=== PATIENT | female | born 1955 | race Caucasian/White ===

== ENCOUNTER 2017-05-15 12:39 | Emergency (ER) | payer BC, OTHER ==
[~2017-05-15] VITALS: Ht 157.5 cm; Wt 59.0 kg
[~2017-05-15 12:39] MED LIST: ANASTROZOLE1 MG PO; ASACOL400 MG PO; ASPIR 8181 MG PO; ASPIRIN325 MG PO; BACTRIM DS TAB1 EACH PO; BUTALBITAL-ASA1 EACH PO; CLOPIDOGREL75 MG PO; COLESTIPOL HCL1 G1 PO; CYCLOBENZAPRINE10 MG PO; GEMFIBROZIL600 MG PO; HYDROCODON-ACE1 EA12 PO; HYDROCODON-ACE1 EA15 PO; LISINOPRIL10 MG PO; MOBIC7.5 M1 PO; MOBIC7.5 MG PO; NORCO 5-325 TA1 EACH PO; OMEPRAZOLE40 MG PO; ONDANSETRON HCL4 MG PO; PANTOPRAZOLE SO40 MG PO; PROMETHAZINE HC25 M1 PO; SERTRALINE HCL25 MG PO; SIMVASTATIN PO; SUCRALFATE1 GM PO; TYLENOL # 31 EA PO; VICOPROFEN 2001 EACH PO; Z.0.PRINIVIL10 MG PO; Z.0.ZOLOFT25 MG PO; ZOCOR40 MG; levocetirizine PO
[2017-05-15 15:04] LABS: BASOPHILS % 0.4 % (0.0-1.0); EOSINOPHILS # (AUTO) 0.1 (0.0-0.4); EOSINOPHILS % 2.1 % (0.0-6.0); HEMATOCRIT 43.8 % (34.2-44.1); HEMOGLOBIN 15.5 g/dL (12.0-16.0); LYMPHOCYTES # (AUTO) 1.8 (1.0-3.2); MEAN CORPUSCULAR HEMOGLOBIN 31.7 pg (28-32); MEAN CORPUSCULAR HGB CONC 35.4 g/dL (31-35); MEAN CORPUSCULAR VOLUME 89.6 fL (81-99); MONOCYTES # (AUTO) 0.4 (0.2-0.8); MONOCYTES % 6.4 % (4.4-11.3); NEUTROPHILS # (AUTO) 3.3 (2.1-6.9); NEUTROPHILS % 58.7 % (38.7-80.0); PLATELET COUNT 207 x10e3/uL (140-360); RED BLOOD COUNT 4.89 x10e6/uL (3.6-5.1); RED CELL DISTRIBUTION WIDTH 12.7 % (11.7-14.4)
[2017-05-15 15:20] LABS: ALANINE AMINOTRANSFERASE 22 IU/L (0-55); ALBUMIN 4.2 g/dL (3.5-5.0); ALKALINE PHOSPHATASE 107 IU/L (40-150); BLOOD UREA NITROGEN 15 mg/dL (7-26); BUN/CREATININE RATIO 19 (6-25); CALCIUM 10.3 mg/dL (8.4-10.2); CARBON DIOXIDE 24 mmol/L (22-29); CHLORIDE 102 mmol/L (98-107); CREATINE KINASE 105 IU/L (29-168); CREATININE, SERUM 0.79 mg/dL (0.57-1.11); EST GLOMERULAR FILTRATION RATE > 60 ML/MIN (60-); GLUCOSE 93 mg/dL (74-118); SODIUM 136 mmol/L (136-145)
--- NOTE | 2017-05-15 15:28 | Diagnostic Imaging Report ---
PROCEDURE: Frontal and lateral views of the chest. COMPARISON: Patients [facility], CT, CT CHEST W, 01/24/2016, 22:55. Patients [facility], DX, CHEST SINGLE (NOT PORTABLE), 01/24/2016, 13:06. INDICATIONS: COUGH, CHEST PAIN FINDINGS: Lines/tubes: None. Lungs: The lungs are well inflated and clear. There is no evidence of pneumonia or pulmonary edema. Pleura: There is no pleural effusion or pneumothorax. Heart and mediastinum: The heart and the mediastinum are normal. Bones: No acute bony abnormality. Partially visualized fusion hardware in the lower cervical spine. IMPRESSION: 1. No acute cardiopulmonary abnormalities. Moshe Slater M.D. Dictated by: Moshe Slater M.D. on 05/15/2017 at 15:28 Electronically approved by: Moshe Slater M.D. on 05/15/2017 at 15:28
[2017-05-15 18:42] LABS: BILIRUBIN,URINE NEGATIVE (NEGATIVE); CLARITY,URINE CLEAR (CLEAR); COLOR,URINE YELLOW (YELLOW); KETONES,URINE NEGATIVE (NEGATIVE); LEUKOCYTE ESTERASE ,URINE NEGATIVE (NEGATIVE); NITRITE,URINE NEGATIVE (NEGATIVE); PROTEIN,URINE DIPSTICK NEGATIVE (NEGATIVE); URINE UROBILINOGEN 0.2 mg/dL (0.2 - 1)
[2017-05-15 18:54] LABS: EPITHELIAL CELLS,URINE RARE /LPF; RBC,URINE 0-5 /HPF (0-5); WBC,URINE (MAN) 0-5 /HPF (0-5)
[2017-05-15 18:55] LABS: MUCUS,URINE FEW (RARE)
[2017-05-15 20:19] VITALS: BP 126/82
== END 2017-05-15 20:22 | disposition home or self-care (01) ==
LOC: ER 12:48
DX: R05 Cough (principal); R06.00 Dyspnea, unspecified; K92.89 Other specified diseases of the digestive system
CPT/HCPCS: 36415; 71046; 80053; 81001; 82550; 82553; 83880; 84484; 85025; 93005; 99284

== ENCOUNTER 2017-06-24 11:18 | Inpatient (IN) | payer BC ==
[~2017-06-24] VITALS: Ht 157.5 cm; Wt 70.8 kg
--- OUTSIDE RECORDS SUMMARY | 2017-06-24 11:21 | XMS REPORT | Continuity of Care Document ---
Author Author [facility] Organization [facility] Address [address] [place] [address] Phone Unavailable Care Team Providers Care Transportation Engineering Technician Name Role Phone ALVARO IQBAL MD PCP Insurance Providers Guarantor Deisi Teran Address [address] [place] [address] Email [email or web address] [facility] Policy Number [id number] Subscriber's Name Deisi Teran Relationship 18 Self / Same As Patient Group Number [id number] Group Name [facility] [employer] 1 Effective Date 16 Advance Directives Directive Response Recorded Date/Time Does the patient have an advance directive? No 08/09/14 3:54pm If yes, is advance directive on file with [facility]? No 08/09/14 3:54pm If not on file with [facility] will patient provide a copy? No 05/15/17 2:29pm Do you have a Directive to Physician? No 05/15/17 2:29pm Do you have a Medical Power of Paperhanger Contractor? No 05/15/17 2:29pm Do you have an out of hospital Do Not Resuscitate Order? No 05/15/17 2:29pm Do you have any special needs we should be aware of? No 05/15/17 2:29pm Do you have a support person here with you today? Yes 05/15/17 2:29pm Did patient receive Notice of Privacy Practices? Yes 05/15/17 2:29pm Did patient receive patient rights and responsibilities? Yes 05/15/17 2:29pm Problems Medical Problem Onset Date Status Chest pain 08/09/2014 Acute Deep vein thrombophlebitis of lower leg Unknown Acute Lung mass 08/09/2014 Acute Sciatica Unknown Acute Medications Current Home Medications Medication Dose Units Route Directions Days Qty Instructions Start Date Acetaminophen/Codeine Phosphate (Tylenol # 3*) 1 Ea Tab 1 Tab Oral Every 4 Hours as needed for Pain Anastrozole 1 Mg Tablet 1 Mg Oral Bedtime Colestipol Hcl 1 Gm Tablet 1 Gm Oral Daily Gemfibrozil 600 Mg Tablet 600 Mg Oral Twice A Day Levocetirizine 5 Mg Oral Daily Lisinopril 10 Mg Tablet 10 Mg Oral Daily Sertraline Hcl 25 Mg Tablet 25 Mg Oral Qhs Sucralfate 1 Gm Tablet 1 G Oral Three Times Daily And Bedtime Past Home Medications Medication Directions Ordered Status Aspirin (Aspir 81) 81 Mg Tablet., 81 Mg Oral Daily Discontinued Aspirin 325 Mg Tablet, 325 Mg Oral Twice A Day Discontinued Butalbital/Aspirin/Caffeine (Smqfeycrjz-Rqo-Pybzrorv Cap) 1 Each Capsule, 1 Cap Oral Every 12 Hours as needed Discontinued Hydrocodone Bit/Acetaminophen (Hydrocodon-Acetaminoph 7.5-300) 1 Each Tablet, 1 Tab Oral Every 12 Hours as needed for Pain Discontinued Hydrocodone Bit/Acetaminophen (Hydrocodon-Acetaminoph 7.5-325) 1 Each Tablet, 1 Tab Oral Bid Prn Discontinued Hydrocodone/Ibuprofen (Vicoprofen 200-7.5 Mg Tab) 1 Each Tablet, 200 Mg Oral As Needed Discontinued Meloxicam (Mobic*) 7.5 Mg Tablet, 7.5 Mg Oral As Needed Discontinued Meloxicam (Mobic) 7.5 Mg Tablet, 7.5 Mg Oral As Needed Discontinued Omeprazole 40 Mg Capsule., 40 Mg Oral Daily Discontinued Ondansetron Hcl 4 Mg Tablet, 4 Mg Oral Bid Prn Discontinued Pantoprazole Sodium (Protonix) 40 Mg Tablet.dr 40 Mg Oral Daily Discontinued Simvastatin (Zocor) 40 Mg Tablet, Discontinued Simvastatin , 40 Mg Oral Daily Discontinued Sulfamethoxazole/Trimethoprim (Bactrim Ds Tablet) 1 Each Tablet, 1 Tab Oral Daily Discontinued Social History Social History Problem Response Recorded Date/Time Onset Date Status Hx Psychiatric Problems No 08/09/2014 3:54pm Not Applicable Not Applicable Hx Eating Disorder No 08/09/2014 3:54pm Not Applicable Not Applicable Hx Substance Use Disorder No 08/09/2014 3:54pm Not Applicable Not Applicable Hx Depression No 08/09/2014 3:54pm Not Applicable Not Applicable Hx Alcohol Use No 08/09/2014 3:54pm Not Applicable Not Applicable Hx Substance Use Treatment No 08/09/2014 3:54pm Not Applicable Not Applicable Hx Physical Abuse No 08/09/2014 3:54pm Not Applicable Not Applicable Hospital Discharge Instructions No hospital discharge instruction information available. Plan of Care Discharge Date 05/15/17 8:22pm Disposition HOME, SELF-CARE Condition at Discharge Stable Instructions/Education Provided Dyspnea Forms Provided Work/School Excuse Prescriptions See Medication Section Referrals ALVARO IQBAL MD Order Date: Call for an appointment Address: [address] [place] [id number] Additional Instructions/Education Rest, drink plenty of fluids. Take over the counter medication for allergy symptoms. Take the prescribed medication for sever pain. Call the Medical provider referal for out patient follow up. Return to the ER for any chest pain, shortness of breath, trouble handling oral secreactions or any new concerns. Functional Status No functional status information available. Allergies, Adverse Reactions, Alerts No known allergies. Immunizations No immunization information available. Vital Signs Acute Vital Signs Vital Response Date/Time Temperature (Fahrenheit) 97.8 degrees F (97.6 - 99.5) 05/15/2017 8:19pm Pulse Pulse Rate (adult) 70 bpm (60 - 90) 05/15/2017 8:19pm Respiratory Rate 18 bpm (12 - 24) 05/15/2017 8:19pm Blood Pressure 126/82 mm Hg 05/15/2017 8:19pm Height 5 ft 2 in 05/15/2017 12:47pm Weight 130 lb 05/15/2017 12:47pm Body Mass Index 23.8 kg/m^2 05/15/2017 12:47pm Results Laboratory Results Test Name Result Units Flags Reference Collection Date/Time Result Date/ Time Comments White Blood Count 5.65 x10e3/uL 4.8-10.8 05/15/2017 2:50pm 05/15/2017 3 :07pm Red Blood Count 4.89 x10e6/uL 3.6-5.1 05/15/2017 2:50pm 05/15/2017 3: 07pm Hemoglobin 15.5 g/dL 12.0-16.0 05/15/2017 2:50pm 05/15/2017 3:07pm Hematocrit 43.8 % 34.2-44.1 05/15/2017 2:50pm 05/15/2017 3:07pm Mean Corpuscular Volume 89.6 fL 81-99 05/15/2017 2:50pm 05/15/2017 3: 07pm Mean Corpuscular Hemoglobin 31.7 pg 28-32 05/15/2017 2:50pm 05/15/2017 3:07pm Mean Corpuscular Hemoglobin Concent 35.4 g/dL H 31-35 05/15/2017 2:50pm 05/15/2017 3:07pm Red Cell Distribution Width 12.7 % 11.7-14.4 05/15/2017 2:50pm 2017 3:07pm Platelet Count 207 x10e3/uL 140-360 05/15/2017 2:50pm 05/15/2017 3: 07pm Neutrophils (%) (Auto) 58.7 % 38.7-80.0 05/15/2017 2:50pm 05/15/2017 3: 07pm Lymphocytes (%) (Auto) 32.0 % 18.0-39.1 05/15/2017 2:50pm 05/15/2017 3: 07pm Monocytes (%) (Auto) 6.4 % 4.4-11.3 05/15/2017 2:50pm 05/15/2017 3: 07pm Eosinophils (%) (Auto) 2.1 % 0.0-6.0 05/15/2017 2:50pm 05/15/2017 3: 07pm Basophils (%) (Auto) 0.4 % 0.0-1.0 05/15/2017 2:50pm 05/15/2017 3:07pm IM GRANULOCYTES % 0.4 % 0.0-1.0 05/15/2017 2:50pm 05/15/2017 3:07pm Neutrophils # (Auto) 3.3 2.1-6.9 05/15/2017 2:50pm 05/15/2017 3:07pm Lymphocytes # (Auto) 1.8 1.0-3.2 05/15/2017 2:50pm 05/15/2017 3:07pm Monocytes # (Auto) 0.4 0.2-0.8 05/15/2017 2:50pm 05/15/2017 3:07pm Eosinophils # (Auto) 0.1 0.0-0.4 05/15/2017 2:50pm 05/15/2017 3:07pm Basophils # (Auto) 0.0 0.0-0.1 05/15/2017 2:50pm 05/15/2017 3:07pm Absolute Immature Granulocyte (auto 0.02 x10e3/uL 0-0.1 05/15/2017 2: 50pm 05/15/2017 3:07pm Urine Color YELLOW YELLOW 05/15/2017 5:55pm 05/15/2017 6:43pm Urine Clarity CLEAR CLEAR 05/15/2017 5:55pm 05/15/2017 6:43pm Urine Specific [place] 1.015 1.010-1.025 05/15/2017 5:55pm 2017 6:43pm Urine pH 5 5 - 7 05/15/2017 5:55pm 05/15/2017 6:43pm Urine Leukocyte Esterase NEGATIVE NEGATIVE 05/15/2017 5:55pm 2017 6:43pm Urine Nitrite NEGATIVE NEGATIVE 05/15/2017 5:55pm 05/15/2017 6:43pm Urine Protein NEGATIVE NEGATIVE 05/15/2017 5:55pm 05/15/2017 6:43pm Urine Glucose (UA) NEGATIVE NEGATIVE 05/15/2017 5:55pm 05/15/2017 6: 43pm Urine Ketones NEGATIVE NEGATIVE 05/15/2017 5:55pm 05/15/2017 6:43pm Urine Urobilinogen 0.2 mg/dL 0.2 - 1 05/15/2017 5:55pm 05/15/2017 6: 43pm Urine Bilirubin NEGATIVE NEGATIVE 05/15/2017 5:55pm 05/15/2017 6: 43pm Urine Blood NEGATIVE NEGATIVE 05/15/2017 5:55pm 05/15/2017 6:43pm Urine WBC 0-5 /HPF 0-5 05/15/2017 5:55pm 05/15/2017 6:55pm Urine RBC 0-5 /HPF 0-5 05/15/2017 5:55pm 05/15/2017 6:55pm Urine Bacteria NONE /HPF NONE 05/15/2017 5:55pm 05/15/2017 6:55pm Urine Epithelial Cells RARE /LPF NONE 05/15/2017 5:55pm 05/15/2017 6: 55pm Urine Mucus FEW H RARE 05/15/2017 5:55pm 05/15/2017 6:55pm Sodium Level 136 mmol/L 136-145 05/15/2017 2:50pm 05/15/2017 3:22pm Potassium Level 4.0 mmol/L 3.5-5.1 05/15/2017 2:50pm 05/15/2017 3:22pm Chloride Level 102 mmol/L 98-107 05/15/2017 2:50pm 05/15/2017 3:22pm Carbon Dioxide Level 24 mmol/L 22-29 05/15/2017 2:50pm 05/15/2017 3: 22pm Anion Gap 14.0 mmol/L 8-16 05/15/2017 2:50pm 05/15/2017 3:22pm Blood Urea Nitrogen 15 mg/dL 7-26 05/15/2017 2:50pm 05/15/2017 3:22pm Creatinine 0.79 mg/dL 0.57-1.11 05/15/2017 2:50pm 05/15/2017 3:22pm BUN/Creatinine Ratio 19 6-25 05/15/2017 2:50pm 05/15/2017 3:22pm Estimat Glomerular Filtration Rate > 60 ML/MIN 60- 05/15/2017 2:50pm 3:22pm Ranges were taken from the National Kidney Disease Education Program and the National Kidney Foundation literature. Reference ranges: 60 or greater: Normal 16-59 (for 3 consecutive months): Chronic kidney disease 15 or less: Kidney failure Glucose Level 93 mg/dL 74-118 05/15/2017 2:50pm 05/15/2017 3:22pm Calcium Level 10.3 mg/dL H 8.4-10.2 05/15/2017 2:50pm 05/15/2017 3:22pm Total Bilirubin 0.5 mg/dL 0.2-1.2 05/15/2017 2:50pm 05/15/2017 3:22pm Aspartate Amino Transf (AST/SGOT) 23 IU/L 5-34 05/15/2017 2:50pm 2017 3:22pm Alanine Aminotransferase (ALT/SGPT) 22 IU/L 0-55 05/15/2017 2:50pm 3:22pm Total Protein 8.6 g/dL H 6.5-8.1 05/15/2017 2:50pm 05/15/2017 3:22pm Albumin 4.2 g/dL 3.5-5.0 05/15/2017 2:50pm 05/15/2017 3:22pm Globulin 4.4 g/dL H 2.3-3.5 05/15/2017 2:50pm 05/15/2017 3:22pm Albumin/Globulin Ratio 1.0 0.8-2.0 05/15/2017 2:50pm 05/15/2017 3: 22pm Alkaline Phosphatase 107 IU/L 40-150 05/15/2017 2:50pm 05/15/2017 3: 22pm B-Type Natriuretic Peptide 24.2 pg/mL 0-100 05/15/2017 2:50pm 2017 3:25pm Creatine Kinase 105 IU/L 29-168 05/15/2017 2:50pm 05/15/2017 3:22pm Creatine Kinase MB 3.70 ng/mL 0-5.0 05/15/2017 2:50pm 05/15/2017 3: 29pm Troponin I < 0.001 ng/mL 0-0.300 05/15/2017 2:50pm 05/15/2017 3:29pm Procedures Procedure Status Date Provider(s) X-ray of chest, two views Active 05/15/17 AKBAR BRANDT TOOL DISTRIBUTOR Encounters Encounter Location Arrival/Admit Date Discharge/Depart Date Attending Provider Departed Emergency Room [facility] 05/15/17 12:48pm 05/15 8:22pm RAUL BIRCH MD
--- OUTSIDE RECORDS SUMMARY | 2017-06-24 11:21 | XMS REPORT ---
[facility] Address Unknown Phone Unavailable Care Team Providers Care Dietetic Tech Name Role Phone RAUL BIRCH Unavailable Unavailable Problems This patient has no known problems. Allergies, Adverse Reactions, Alerts This patient has no known allergies or adverse reactions. Medications This patient has no known medications. Results Test Description Test Time Test Comments Text Results Atomic Results Result Comments CHEST 2 VIEWS [place] [address] Patient Name: DEISI WILKINSON MR #: [id number] : 1955 Age/Sex: 61/F Req # : [id number] Adm Physician: Ordered by: AKBAR BRANDT BUSINESS TECHNOLOGY ARCHITECT Report #: [id number] Location: ER Room/Bed: Procedure: [id number] DX/CHEST 2 VIEWS Exam Date: Exam Time: REPORT STATUS: Signed PROCEDURE: Frontal and lateral views of the chest. COMPARISON: [facility], CT, CT CHEST W, 01/24/2016, 22:55. [facility], DX, CHEST SINGLE (NOT PORTABLE), 01/24/2016, 13: 06. INDICATIONS: COUGH, CHEST PAIN FINDINGS: Lines/tubes: None. Lungs: The lungs are well inflated and clear. There is no evidence of pneumonia or pulmonary edema. Pleura: There is no pleural effusion or pneumothorax. Heart and mediastinum: The heart and the mediastinum are normal. Bones: No acute bony abnormality. Partially visualized fusion hardware in the lower cervical spine. IMPRESSION: 1. No acute cardiopulmonary abnormalities. Nitesh Slater M.D. Dictated by: Nitesh Slater M.D. on 05/15/2017 at 15:28 Electronically approved by: Nitesh Slater M.D. on 05/15/2017 at 15:28 Dictated By: NITESH SLATER MD [id number] Transcribed By: JAJA on 05/15/17 1528 COPY TO: AKBAR BRANDT NP
[2017-06-24] MEDS ORDERED: SODIUM CHLORIDE 0.9% 1000ML 1,000 ML IV STA (11:27)
[2017-06-24] MEDS ORDERED: METRONIDAZOLE 500MG/NS 100ML 100 ML IV STA (11:27)
[2017-06-24] MEDS ORDERED: CIPROFLOXACIN 400 MG/D5W 200ML 200 ML IV ONE (11:30)
[2017-06-24] MEDS ORDERED: ONDANSETRON HCL 4 MG ORAL DISINTEGRATING TAB PO ONE ×2 (11:30→14:00)
[2017-06-24] MEDS ORDERED: DIATRIZOATE MEGL/DIATRIZOA SOD 30 ML BTL PO ONE (11:44)
[2017-06-24] MEDS ORDERED: MORPHINE SULFATE 2 MG/ML SYR IV ONE ×2 (12:00→14:00)
[2017-06-24 12:06] LABS: CLARITY,URINE CLEAR (CLEAR); COLOR,URINE YELLOW (YELLOW); LEUKOCYTE ESTERASE ,URINE 1+ (NEGATIVE)
[2017-06-24 12:07] LABS: BILIRUBIN,URINE NEGATIVE (NEGATIVE); KETONES,URINE NEGATIVE (NEGATIVE); NITRITE,URINE NEGATIVE (NEGATIVE); PROTEIN,URINE DIPSTICK NEGATIVE (NEGATIVE); URINE UROBILINOGEN 0.2 mg/dL (0.2 - 1)
--- NOTE | 2017-06-24 12:14 | Diagnostic Imaging Report ---
EXAMINATION: Chest, CHEST SINGLE (PORTABLE) INDICATION: Chest pain COMPARISON: Portable chest 08/06/2015 FINDINGS: LINES: None. Heart: Normal cardiac silhouette. Vascular: The pulmonary vasculature is within normal limits. Atherosclerotic calcifications of the aortic arch. Mediastinum: No mediastinal, hilar, or axillary mass or lymphadenopathy. Lungs: No parenchymal mass. No focal consolidation. Pleura: No pleural effusion. No pneumothorax. Bones: No acute osseous abnormality. Degenerative changes of the thoracic spine. Soft tissues: Normal. Impression: No acute radiographic abnormality. Signed by: Dr. Francisco Soto M.D. on 06/24/2017 12:10 PM
[2017-06-24 12:18] LABS: RBC,URINE 0-5 /HPF (0-5)
[2017-06-24 12:19] LABS: BACTERIA,URINE FEW /HPF; EPITHELIAL CELLS,URINE MODERATE /LPF
[2017-06-24 12:40] LABS: BASOPHILS % 0.5 % (0.0-1.0); EOSINOPHILS # (AUTO) 0.1 (0.0-0.4); EOSINOPHILS % 2.1 % (0.0-6.0); HEMATOCRIT 43.5 % (34.2-44.1); HEMOGLOBIN 15.5 g/dL (12.0-16.0); LYMPHOCYTES # (AUTO) 1.6 (1.0-3.2); LYMPHOCYTES % 36.7 % (18.0-39.1); MEAN CORPUSCULAR HEMOGLOBIN 31.9 pg (28-32); MEAN CORPUSCULAR HGB CONC 35.6 g/dL (31-35); MEAN CORPUSCULAR VOLUME 89.5 fL (81-99); MONOCYTES # (AUTO) 0.3 (0.2-0.8); MONOCYTES % 5.8 % (4.4-11.3); NEUTROPHILS # (AUTO) 2.4 (2.1-6.9); NEUTROPHILS % 54.7 % (38.7-80.0); PLATELET COUNT 207 x10e3/uL (140-360); RED BLOOD COUNT 4.86 x10e6/uL (3.6-5.1)
[2017-06-24 12:50] LABS: INR 1.05; PROTHROMBIN TIME 12.9 seconds (11.9-14.5)
[2017-06-24 12:51] LABS: PARTIAL THROMBOPLASTIN TIME 27.2 seconds (23.8-35.5)
[2017-06-24 12:59] LABS: ALANINE AMINOTRANSFERASE 23 IU/L (0-55); ALBUMIN 3.9 g/dL (3.5-5.0); ALBUMIN/GLOBULIN RATIO 0.9 (0.8-2.0); ALKALINE PHOSPHATASE 93 IU/L (40-150); ANION GAP 15.8 mmol/L (8-16); BLOOD UREA NITROGEN 11 mg/dL (7-26); BUN/CREATININE RATIO 13 (6-25); CALCIUM 10.1 mg/dL (8.4-10.2); CARBON DIOXIDE 21 mmol/L (22-29); CHLORIDE 108 mmol/L (98-107); CREATINE KINASE 130 IU/L (29-168); CREATININE, SERUM 0.83 mg/dL (0.57-1.11); EST GLOMERULAR FILTRATION RATE > 60 ML/MIN (60-); GLUCOSE 85 mg/dL (74-118); LIPASE 44 U/L (8-78); POTASSIUM 3.8 mmol/L (3.5-5.1); SODIUM 141 mmol/L (136-145)
--- NOTE | 2017-06-24 14:18 | Diagnostic Imaging Report ---
EXAM: CT Abdomen and Pelvis WITH contrast INDICATION: Abdominal pain COMPARISON: None. TECHNIQUE: Abdomen and pelvis were scanned utilizing a multidetector helical scanner from the lung base to the pubic symphysis after administration of contrast. Coronal and sagittal reformations were obtained. Protocol: General survey IV CONTRAST: 100 mL of Isovue 370 ORAL CONTRAST: Gastroview COMPLICATIONS: None RADIATION DOSE: Total Exam DLP: 302 mGy*cm. CTDIvol has been reviewed. It is below the limits set by the Radiation Protocol Committee (RPC). FINDINGS: LINES: None. Lower thorax: No parenchymal abnormality. No pneumothorax. No pleural effusion. Liver: No focal mass. No hepatomegaly. Normal parenchyma. The hepatic and portal veins are patent. Gallbladder: Cholecystectomy. Biliary tree: No intrahepatic duct dilation. No extrahepatic duct dilation. Spleen: No splenomegaly. No focal mass. Pancreas: Normal parenchymal enhancement. No focal mass. Normal pancreatic duct. No peripancreatic inflammatory changes. Kidneys: No obstructing calculi. No hydronephrosis. No solid enhancing mass. No cysts. No perinephric soft tissue inflammatory changes. Adrenal glands: No adrenal nodules.. Bladder: Normal urinary bladder. Pelvic organs: Normal uterus and ovaries. GI: No bowel wall thickening. No air-fluid levels. The stomach and small bowel are normal. Circumferential bowel wall thickening is present in the descending colon, sigmoid colon, and rectum. Normal appendix. Scattered diverticuli are present in the descending and sigmoid colon, without adjacent soft tissue inflammatory changes. A moderate amount of retained feces limits intraluminal evaluation of the colon. Peritoneum/retroperitoneum: No pneumoperitoneum. No ascites. No drainable fluid collection. Lymph nodes: No lymphadenopathy. . Vessels: The abdominal aorta and iliac vessels are patent. The celiac, superior mesenteric, and inferior mesenteric arteries are patent. Single bilateral renal arteries are patent. . Bones: No focal abnormality. Degenerative changes of the lumbar spine. Soft tissues: No focal abnormality. IMPRESSION: Circumferential bowel wall thickening of the left hemicolon may represent a colitis of infectious or inflammatory etiology. Diverticulosis without evidence of diverticulitis. Signed by: Dr. Francisco Soto M.D. on 06/24/2017 2:14 PM
[2017-06-24] MEDS: SODIUM CHLORIDE 0.9% 1000ML 1,000 ML IV SCH (15:00)
[2017-06-24] MEDS ORDERED: KETOROLAC TROMETHAMINE 30 MG/ML VIAL IV ONE (15:15)
[2017-06-24] MEDS ORDERED: ACETAMINOPHEN/CODEINE 300MG - 30MG TAB PO PRN (16:15)
--- NOTE | 2017-06-24 17:10 | History and Physical ---
CLINICAL HISTORY: This is a 59-year-old white woman seen in the emergency room at [facility]. Known to our service from previous evaluation by Dr. Francois Parker because off low abdominal pains, with initial workup indicating diverticulitis. This patient had similar condition in the past. Previously evaluated by Dr. Ashu Lopez. She has a history of hypertension. Unclear history of atrial septal defect. Hyperlipidemia. Indigestion. Chronic pain medication usage. MEDICATIONS: She takes: 1. Vicodin. 2. Tylenol No. 3. 3. Colestipol. 4. Carafate. 5. Lisinopril 10 mg per day. 6. Sertraline 25 mg. 7. Gemfibrozil 600 mg b.i.d. 8. Aspirin 81 mg daily. PAST SURGERIES: Included cholecystectomy, unclear heart repair in [place] at age 10, cervical spine disease, intracranial aneurysm with coil embolization at [facility] in 2011, left heart cath showing no significant coronary artery disease on 11/17/09. FAMILY HISTORY: Father . Mother is alive with CVA. PERSONAL AND SOCIAL HISTORY: Denies smoking, drinking. ALLERGIES: TO CHEMICAL STRESS TEST. REVIEW OF SYSTEMS: Noncontributory. PHYSICAL EXAMINATION GENERAL: She is alert and coherent, appears to be comfortable. CARDIAC: Jugular veins are not distended. S1 and S2 are regular. There is a 1/6 systolic murmur. LUNGS: Clear. ABDOMEN: Soft. Bowel sounds are present. EXTREMITIES: No cyanosis, clubbing or edema. LABORATORY STUDIES: The white count is 4300, hemoglobin 15.5, platelet count of 207,000. Electrolytes are negative. Bicarb is 21. Stool guaiac was negative. Urinalysis showed 6-10 WBCs. IMPRESSION 1. Diverticulitis. 2. Possible urinary tract infection. 3. 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 4. Chronic pain medication. 5. Hypertension. 6. Hyperlipidemia. 7. Anxiety and depression. 8. Right bundle-branch block. RECOMMENDATIONS: GI consultation with Dr. Ashu Lopez. Antibiotics. Job#: [id number] cc:MD ASHU RUFF MD
[2017-06-24] MEDS: SUCRALFATE 1 GM TAB PO SCH ×2 (17:55→21:30)
[2017-06-24] MEDS: GEMFIBROZIL 600 MG TAB PO SCH (17:56)
[2017-06-24] MEDS: PIPER-TAZ 3.375 GM 100 ML IV SCH (17:56)
[2017-06-24] MEDS ORDERED: PIPER-TAZ 3.375 GM 3.375 GM/100 ML BAG IV SCH (18:00)
[2017-06-24] MEDS ORDERED: SODIUM CHLORIDE 0.9% 50ML 50 ML ONE (18:19)
[2017-06-24] MEDS ORDERED: IOPAMIDOL 370 MG/ML 200 ML INFUS..BTL INJ ONE (18:20)
[2017-06-24] MEDS: METRONIDAZOLE 500MG/NS 100ML 100 ML IV SCH (18:40)
[2017-06-24 21:41] VITALS: BP 123/57
[2017-06-24] MEDS: ONDANSETRON HCL 4 MG ORAL DISINTEGRATING TAB PO PRN (22:28)
[2017-06-24] MEDS: ANASTROZOLE 1 MG TAB PO SCH (22:28)
[2017-06-24] MEDS: MORPHINE SULFATE 2 MG/ML SYR IV PRN (22:28)
[2017-06-25] VITALS (11 sets, daily range): BP systolic 101–142; BP diastolic 53–63
[2017-06-25] MEDS: METRONIDAZOLE 500MG/NS 100ML 100 ML IV SCH ×4 (00:03→17:56)
[2017-06-25] MEDS: PIPER-TAZ 3.375 GM 100 ML IV SCH ×4 (00:04→17:56)
[2017-06-25] MEDS ORDERED: PEG (High)/E-LYTE SOLN 4,000 ML BTL PO ONE (00:30)
[2017-06-25] MEDS: SODIUM CHLORIDE 0.9% 1000ML 1,000 ML IV SCH ×2 (00:30→11:49)
[2017-06-25 07:25] LABS: BASOPHILS % 0.2 % (0.0-1.0); EOSINOPHILS # (AUTO) 0.1 (0.0-0.4); HEMATOCRIT 39.1 % (34.2-44.1); HEMOGLOBIN 13.2 g/dL (12.0-16.0); LYMPHOCYTES # (AUTO) 1.7 (1.0-3.2); LYMPHOCYTES % 32.7 % (18.0-39.1); MEAN CORPUSCULAR HEMOGLOBIN 31.7 pg (28-32); MEAN CORPUSCULAR HGB CONC 33.8 g/dL (31-35); MEAN CORPUSCULAR VOLUME 93.8 fL (81-99); MONOCYTES # (AUTO) 0.4 (0.2-0.8); MONOCYTES % 7.5 % (4.4-11.3); NEUTROPHILS % 58.4 % (38.7-80.0); PLATELET COUNT 167 x10e3/uL (140-360); RED BLOOD COUNT 4.17 x10e6/uL (3.6-5.1); RED CELL DISTRIBUTION WIDTH 13.2 % (11.7-14.4)
[2017-06-25] MEDS: SUCRALFATE 1 GM TAB PO SCH ×4 (07:30→20:49)
[2017-06-25] MEDS ORDERED: CITRATE OF MAGNESIA 300ML BOTTLE PO ONE (07:30)
[2017-06-25 08:00] LABS: ALANINE AMINOTRANSFERASE 18 IU/L (0-55); ALBUMIN 3.3 g/dL (3.5-5.0); ALBUMIN/GLOBULIN RATIO 0.9 (0.8-2.0); ALKALINE PHOSPHATASE 81 IU/L (40-150); BLOOD UREA NITROGEN 10 mg/dL (7-26); BUN/CREATININE RATIO 12 (6-25); CALCIUM 8.8 mg/dL (8.4-10.2); CARBON DIOXIDE 18 mmol/L (22-29); CHLORIDE 114 mmol/L (98-107); CREATININE, SERUM 0.81 mg/dL (0.57-1.11); EST GLOMERULAR FILTRATION RATE > 60 ML/MIN (60-); GLUCOSE 95 mg/dL (74-118); SODIUM 140 mmol/L (136-145)
[2017-06-25] MEDS: LISINOPRIL 10 MG TAB PO SCH (08:24)
[2017-06-25] MEDS: GEMFIBROZIL 600 MG TAB PO SCH ×2 (09:00→16:52)
[2017-06-25] MEDS: COLESTIPOL HCL 1 G TAB PO SCH (09:00)
[2017-06-25] MEDS: MORPHINE SULFATE 2 MG/ML SYR IV PRN (18:08)
[2017-06-25] MEDS: ONDANSETRON HCL 4 MG ORAL DISINTEGRATING TAB PO PRN (18:14)
[2017-06-25] MEDS: ANASTROZOLE 1 MG TAB PO SCH (20:49)
[2017-06-25] MEDS ORDERED: ONDANSETRON HCL INJ 2 MG/ML VIAL IV PRN (21:00)
[2017-06-25] MEDS ORDERED: ONDANSETRON HCL INJ 2 MG/ML VIAL IV ONE (21:38)
[2017-06-26] VITALS (8 sets, daily range): BP systolic 93–155; BP diastolic 55–79
[2017-06-26] MEDS: PIPER-TAZ 3.375 GM 100 ML IV SCH ×4 (00:11→19:10)
[2017-06-26] MEDS: METRONIDAZOLE 500MG/NS 100ML 100 ML IV SCH ×4 (01:12→17:32)
[2017-06-26] MEDS: SODIUM CHLORIDE 0.9% 1000ML 1,000 ML IV SCH ×3 (03:03→17:32)
[2017-06-26] MEDS: MORPHINE SULFATE 2 MG/ML SYR IV PRN ×3 (03:07→21:13)
[2017-06-26] MEDS ORDERED: CITRATE OF MAGNESIA 300ML BOTTLE PO ONE (07:00)
[2017-06-26] MEDS: SUCRALFATE 1 GM TAB PO SCH ×4 (07:57→21:12)
[2017-06-26] MEDS: GEMFIBROZIL 600 MG TAB PO SCH ×2 (07:57→17:32)
[2017-06-26] MEDS: ONDANSETRON HCL INJ 2 MG/ML VIAL IV PRN (08:05)
[2017-06-26] MEDS: COLESTIPOL HCL 1 G TAB PO SCH (09:08)
[2017-06-26] MEDS: LISINOPRIL 10 MG TAB PO SCH (09:08)
--- NOTE | 2017-06-26 15:11 | Operative Report ---
DATE OF PROCEDURE: June 24, 2017 REFERRING PHYSICIAN: Dr. Francois Parker. PROCEDURE PERFORMED: Colonoscopy, polypectomy with biopsies. INDICATIONS FOR COLONOSCOPY: Lower abdominal pain, abnormal CT scan of the abdomen. MEDICATION: Patient was done under MAC. Please see anesthesiologist's note. PROCEDURE: With the patient in the left lateral decubitus position, the flexible fiberoptic Olympus colonoscope was inserted into the rectum with ease and advanced all the way to the cecum. It was then withdrawn slowly. Mucosa overlying the cecum, ascending colon, transverse colon appeared to be within normal limits. Mild, patchy, inflammatory changes were noted in the left colon. Multiple random biopsies were obtained. Diverticular disease was noted to involve the distal descending and the sigmoid colon. Two polyps were hot biopsied from the sigmoid colon, and 7 polyps were hot biopsied from the rectum. Scope was then retroflexed into the distal rectum, and small internal hemorrhoids were noted, none of which was actively bleeding. The scope was then straightened out. The rectosigmoid area as well as the distal rectal area were decompressed. Scope was subsequently withdrawn. Patient tolerated the procedure well. IMPRESSION 1. Mild, patchy, left-sided colitis. 2. Diverticulosis. 3. Sigmoid colon polyps times 2, hot biopsied. 4. Rectal polyps times 7, hot biopsied. 5. Internal hemorrhoids, none actively bleeding. PLAN: Follow up histology. Initiate full liquid diet. Patient might benefit from a followup colonoscopy in 3 years. Job#: [id number] cc:MD ALVARO MARTÍNEZ MD
[2017-06-26] MEDS: DICYCLOMINE HCL 10 MG CAP PO SCH ×2 (17:32→21:12)
[2017-06-26] MEDS ORDERED: ACETAMINOPHEN/CODEINE 300MG - 30MG TAB PO PRN (17:45)
[2017-06-26] MEDS: ACETAMINOPHEN/CODEINE 300MG - 30MG TAB PO PRN (17:54)
[2017-06-26] MEDS ORDERED: EPHEDRINE SULFATE INJ 50 MG/10 ML SYR ONE (18:18)
[2017-06-26] MEDS ORDERED: LIDOCAINE HCL 2% LOCAL INJ 5 ML SDV VIAL INJ ONE (18:18)
[2017-06-26] MEDS ORDERED: PROPOFOL IV EMULSION 10 MG/ML 50 ML VIAL ONE (18:18)
[2017-06-26] MEDS ORDERED: PHENYLEPHRINE HCL 1% 10 MG/ML VIAL ONE (18:18)
[2017-06-26] MEDS ORDERED: MIDAZOLAM HCL 2 MG/2 ML VIAL ONE (18:43)
[2017-06-26] MEDS ORDERED: FENTANYL CITRATE/PF 100MCG/2 ML INJ ONE (18:43)
[2017-06-26] MEDS: ANASTROZOLE 1 MG TAB PO SCH (21:12)
[2017-06-27] VITALS (8 sets, daily range): BP systolic 101–124; BP diastolic 54–64
[2017-06-27] MEDS: METRONIDAZOLE 500MG/NS 100ML 100 ML IV SCH ×4 (00:04→17:00)
[2017-06-27] MEDS: PIPER-TAZ 3.375 GM 100 ML IV SCH ×5 (01:07→23:45)
[2017-06-27] MEDS: SODIUM CHLORIDE 0.9% 1000ML 1,000 ML IV SCH ×3 (02:30→22:00)
[2017-06-27] MEDS: MORPHINE SULFATE 2 MG/ML SYR IV PRN ×2 (04:20→12:20)
[2017-06-27] MEDS: ONDANSETRON HCL 4 MG ORAL DISINTEGRATING TAB PO PRN ×2 (04:23→20:30)
[2017-06-27] MEDS: LISINOPRIL 10 MG TAB PO SCH (08:00)
[2017-06-27] MEDS: DICYCLOMINE HCL 10 MG CAP PO SCH ×3 (08:00→21:10)
[2017-06-27] MEDS: GEMFIBROZIL 600 MG TAB PO SCH ×2 (08:00→17:00)
[2017-06-27] MEDS: SUCRALFATE 1 GM TAB PO SCH ×4 (08:00→21:10)
[2017-06-27] MEDS: COLESTIPOL HCL 1 G TAB PO SCH (08:00)
[2017-06-27] MEDS: ACETAMINOPHEN/CODEINE 300MG - 30MG TAB PO PRN ×2 (17:17→21:30)
[2017-06-27] MEDS: ANASTROZOLE 1 MG TAB PO SCH (21:10)
[2017-06-27] MEDS: ONDANSETRON HCL INJ 2 MG/ML VIAL IV PRN (21:30)
[2017-06-28] VITALS: BP 126/58
[2017-06-28] MEDS: METRONIDAZOLE 500MG/NS 100ML 100 ML IV SCH ×4 (00:48→17:00)
[2017-06-28] MEDS ORDERED: PANTOPRAZOLE 40 MG 10ML VIAL IV STA (03:46)
[2017-06-28 04:00] VITALS: BP 119/57
[2017-06-28] MEDS: PANTOPRAZOLE 40 MG 10ML VIAL IV SCH ×2 (04:00→16:04)
[2017-06-28] MEDS: ACETAMINOPHEN/CODEINE 300MG - 30MG TAB PO PRN ×4 (04:30→22:05)
[2017-06-28] MEDS: DICYCLOMINE HCL 20 MG TAB PO SCH ×3 (04:39→21:41)
[2017-06-28] MEDS: PIPER-TAZ 3.375 GM 100 ML IV SCH ×4 (05:15→23:18)
[2017-06-28 07:42] VITALS: BP 124/58
[2017-06-28 08:20] VITALS: BP 124/58
[2017-06-28] MEDS: LACTOBACILLUS ACIDOPHILUS CAPSULE PO SCH ×3 (09:00→20:35)
[2017-06-28] MEDS: GEMFIBROZIL 600 MG TAB PO SCH ×2 (09:00→16:04)
[2017-06-28] MEDS: COLESTIPOL HCL 1 G TAB PO SCH (09:00)
[2017-06-28] MEDS: LISINOPRIL 10 MG TAB PO SCH (09:00)
[2017-06-28] MEDS: SUCRALFATE 1 GM TAB PO SCH ×4 (09:05→20:35)
[2017-06-28 13:33] VITALS: BP 109/58
[2017-06-28] MEDS: SODIUM CHLORIDE 0.9% 1000ML 1,000 ML IV SCH ×2 (16:04→18:30)
[2017-06-28 20:00] VITALS: BP 133/60
[2017-06-28] MEDS: ONDANSETRON HCL 4 MG ORAL DISINTEGRATING TAB PO PRN (20:04)
[2017-06-28] MEDS: ANASTROZOLE 1 MG TAB PO SCH (20:34)
[2017-06-29] VITALS: BP 138/63
[2017-06-29] MEDS: METRONIDAZOLE 500MG/NS 100ML 100 ML IV SCH ×2 (00:56→05:16)
[2017-06-29 04:00] VITALS: BP 144/74
[2017-06-29] MEDS: SODIUM CHLORIDE 0.9% 1000ML 1,000 ML IV SCH (04:30)
[2017-06-29] MEDS: PANTOPRAZOLE 40 MG 10ML VIAL IV SCH (05:16)
[2017-06-29] MEDS: DICYCLOMINE HCL 20 MG TAB PO SCH (05:17)
[2017-06-29] MEDS: PIPER-TAZ 3.375 GM 100 ML IV SCH (06:00)
[2017-06-29 07:35] VITALS: BP 144/74
[2017-06-29] MEDS: ACETAMINOPHEN/CODEINE 300MG - 30MG TAB PO PRN (07:51)
[2017-06-29] MEDS: ONDANSETRON HCL 4 MG ORAL DISINTEGRATING TAB PO PRN (07:51)
[2017-06-29 08:28] VITALS: BP 143/64
[2017-06-29] MEDS: SUCRALFATE 1 GM TAB PO SCH (08:39)
[2017-06-29] MEDS: LACTOBACILLUS ACIDOPHILUS CAPSULE PO SCH (08:40)
[2017-06-29] MEDS: COLESTIPOL HCL 1 G TAB PO SCH (08:40)
[2017-06-29] MEDS: LISINOPRIL 10 MG TAB PO SCH (08:40)
[2017-06-29] MEDS: GEMFIBROZIL 600 MG TAB PO SCH (08:40)
[2017-06-29] MEDS ORDERED: DICYCLOMINE HCL20 MG PO (11:30)
[2017-06-29] MEDS ORDERED: Lactobacillus Acidophilus PO (11:30)
[2017-06-29 12:00] VITALS: BP 133/70
--- NOTE | 2017-06-29 12:19 | Discharge Summary ---
Ms. Sousa is a pleasant 61-year-old woman who was admitted on the 24 of June with complaint of abdominal pain and cramping. HOSPITAL COURSE: She was seen in consultation by Dr. Ashu Lopez, with CAT scan suggesting possible colitis. On June 26, she had colonoscopy with Dr. Lopez that suggested left-sided colitis, diverticulosis, sigmoid polyps, rectal polyp and internal hemorrhoids. She was started on medical regimen including Flagyl and piperacillin/tazobactam and continued on her home medications. The patient continued to have considerable abdominal discomfort and nausea. However, the patient's diet was changed to a liquid diet and then soft diet. Today she is having very little abdominal discomfort, some nausea with no vomiting. She is discharged to home today to add Bentyl, Levsin and Colestid to her medical regimen as well as Lactobacillus acidophilus. She will follow up in [address] Menard and also with Dr. Ashu Lopez. DISCHARGE DIAGNOSES 1. Abdominal pain, nausea and vomiting. 2. Colitis. 3. Diverticulosis. 4. Colon polyps. 5. Hemorrhoids. 6. Hypertension. 7. History of congenital heart disease with septal repair. KENIA HOUSTON MD Job#: [id number] cc:MD ASHU RUFF MD
== END 2017-06-29 12:05 | disposition home or self-care (01) | DRG 392 ==
LOC: ER 11:18 → ERHOLD 14:46 → MED/SURG 20:54
PROVIDERS: ADMIT Internal Medicine Cardiovascular Disease; ATTEND Internal Medicine Cardiovascular Disease
PROC: 0DBN8ZX Excision of Sigmoid Colon, Via Natural or Artificial Opening Endoscopic, Diagnostic (ICD-10-PCS; 2017-06-26)
PROC: 0DBG8ZX Excision of Left Large Intestine, Via Natural or Artificial Opening Endoscopic, Diagnostic (ICD-10-PCS; principal; 2017-06-26 13:30)
PROC: 0DBP8ZX Excision of Rectum, Via Natural or Artificial Opening Endoscopic, Diagnostic (ICD-10-PCS; 2017-06-26 13:30)
PROC: 0DBF8ZX Excision of Right Large Intestine, Via Natural or Artificial Opening Endoscopic, Diagnostic (ICD-10-PCS; 2017-06-26 13:30)
DX: K57.30 Diverticulosis of large intestine without perforation or abscess without bleeding (principal); K52.9 Noninfective gastroenteritis and colitis, unspecified; K63.5 Polyp of colon; K62.1 Rectal polyp; K64.8 Other hemorrhoids; Z79.899 Other long term (current) drug therapy; E78.5 Hyperlipidemia, unspecified; I45.10 Unspecified right bundle-branch block; F41.9 Anxiety disorder, unspecified; F32.9 Major depressive disorder, single episode, unspecified; Q24.9 Congenital malformation of heart, unspecified; G89.29 Other chronic pain; I10 Essential (primary) hypertension
CPT/HCPCS: 36415; 45378; 45380; 45384; 71045; 74177; 80053; 81001; 82270; 82550; 82553; 82948; 83605; 83690; 84484; 85025; 85610; 85730; 86850; 86900; 87040; 87086; 88305; 93005; 99284; J1885; J2001; J2250; J2270; J2370; J2405; J2543; J7030; Q9967

== ENCOUNTER 2017-08-14 13:59 | Emergency (ER) | payer BC ==
[~2017-08-14] VITALS: Ht 157.5 cm; Wt 61.2 kg
[~2017-08-14 13:59] MED LIST changes: +DICYCLOMINE HCL20 MG PO; +Lactobacillus Acidophilus PO
[2017-08-14] MEDS ORDERED: ASPIRIN 81 MG CHEW TAB PO STA (14:15)
[2017-08-14 14:30] LABS: BASOPHILS % 0.2 % (0.0-1.0); EOSINOPHILS # (AUTO) 0.1 (0.0-0.4); EOSINOPHILS % 1.8 % (0.0-6.0); HEMATOCRIT 39.3 % (34.2-44.1); HEMOGLOBIN 13.9 g/dL (12.0-16.0); LYMPHOCYTES # (AUTO) 1.7 (1.0-3.2); LYMPHOCYTES % 30.6 % (18.0-39.1); MEAN CORPUSCULAR HEMOGLOBIN 31.7 pg (28-32); MEAN CORPUSCULAR HGB CONC 35.4 g/dL (31-35); MEAN CORPUSCULAR VOLUME 89.5 fL (81-99); MONOCYTES # (AUTO) 0.3 (0.2-0.8); MONOCYTES % 5.5 % (4.4-11.3); NEUTROPHILS # (AUTO) 3.5 (2.1-6.9); NEUTROPHILS % 61.5 % (38.7-80.0); PLATELET COUNT 228 x10e3/uL (140-360); RED BLOOD COUNT 4.39 x10e6/uL (3.6-5.1); RED CELL DISTRIBUTION WIDTH 13.1 % (11.7-14.4)
[2017-08-14 14:39] LABS: INR 1.1; PROTHROMBIN TIME 13.4 seconds (11.9-14.5)
[2017-08-14 14:40] LABS: PARTIAL THROMBOPLASTIN TIME 27.5 seconds (23.8-35.5)
[2017-08-14 14:49] LABS: ALANINE AMINOTRANSFERASE 30 IU/L (0-55); ALBUMIN 3.7 g/dL (3.5-5.0); ALKALINE PHOSPHATASE 104 IU/L (40-150); ANION GAP 15.8 mmol/L (8-16); BLOOD UREA NITROGEN 13 mg/dL (7-26); BUN/CREATININE RATIO 17 (6-25); CALCIUM 9.8 mg/dL (8.4-10.2); CARBON DIOXIDE 20 mmol/L (22-29); CHLORIDE 108 mmol/L (98-107); CREATINE KINASE 43 IU/L (29-168); CREATININE, SERUM 0.78 mg/dL (0.57-1.11); EST GLOMERULAR FILTRATION RATE > 60 ML/MIN (60-); GLUCOSE 100 mg/dL (74-118); POTASSIUM 3.8 mmol/L (3.5-5.1); SODIUM 140 mmol/L (136-145)
--- NOTE | 2017-08-14 15:24 | Diagnostic Imaging Report ---
PROCEDURE: A single AP view of the chest. COMPARISON: Patients [facility], , CHEST SINGLE (PORTABLE), 06/24/2017, 11:56. INDICATIONS: CHEST PAIN FINDINGS: Lines/tubes: None. Lungs: The lungs are well inflated and clear. There is no evidence of pneumonia or pulmonary edema. Pleura: There is no pleural effusion or pneumothorax. Heart and mediastinum: Cardiac silhouette is unremarkable. Pulmonary vasculature is normal. Bones: No acute bony abnormality. Fusion hardware is partially visualized in the lower cervical spine. IMPRESSION: 1. No acute cardiopulmonary disease. Moshe Slater M.D. Dictated by: Moshe Slater M.D. on 08/14/2017 at 15:27 Electronically approved by: Moshe Slater M.D. on 08/14/2017 at 15:27
[2017-08-14] MEDS ORDERED: KETOROLAC TROMETHAMINE 30 MG/ML VIAL IV NR (17:45)
--- NOTE | 2017-08-14 17:47 | Diagnostic Imaging Report ---
PROCEDURE: CT scan of the chest WITH intravenous contrast, using the PE protocol. TECHNIQUE: The chest was scanned utilizing a multidetector helical scanner from the lung apex through the level of the adrenal glands after the IV administration of 90 cc of Isovue 370, with special concentration of the pulmonary arteries. Coronal and sagittal multiplanar reformations were obtained. COMPARISON: Patients [facility], CT, CT CHEST W, 01/24/2016, 22:55. INDICATIONS: chest pain, right side, r/o pe FINDINGS: Lines/tubes: None. Lungs and Airways: No filling defects in the main, right or left pulmonary arteries to their segmental level to suggest pulmonary embolism. Stable biapical pleuroparenchymal scarring, with 1.5 cm focus of confluent scarring (series 3, image 18). No nodules, masses, or consolidations. Airways are clear, without endobronchial lesions.. Pleura: No effusion, or pneumothorax. Heart and mediastinum: Thyroid is unremarkable. Borderline enlarged heart size. No pericardial effusion. The aorta is non-aneurysmal. Main pulmonary artery measures 3.0 cm Lymph nodes: No mediastinal, hilar, or axillary adenopathy. Abdomen: Limited contrast-enhanced views of the upper abdomen show no abnormality within the visualized liver, spleen, pancreas, or left kidney. The adrenal glands are unremarkable. Bones: No acute bony abnormalities. IMPRESSION: 1. no CT evidence of pulmonary embolism. 2. Stable biapical pleuroparenchymal scarring, with 1.5 cm focus of confluent scarring in the right apex. 3. No consolidation or pulmonary masses. Moshe Slater M.D. Dictated by: Moshe Slater M.D. on 08/14/2017 at 17:50 Electronically approved by: Moshe Slater M.D. on 08/14/2017 at 17:50
[2017-08-14 18:55] VITALS: BP 138/81
[2017-08-14] MEDS ORDERED: SODIUM CHLORIDE 0.9% 50ML 50 ML ONE (19:38)
[2017-08-14] MEDS ORDERED: IOPAMIDOL 370 MG/ML 200 ML INFUS..BTL INJ ONE (19:38)
== END 2017-08-14 19:19 | disposition home or self-care (01) ==
LOC: ER 13:59
DX: R07.9 Chest pain, unspecified (principal); I10 Essential (primary) hypertension; E78.5 Hyperlipidemia, unspecified; F41.9 Anxiety disorder, unspecified; Z85.3 Personal history of malignant neoplasm of breast; Z87.19 Personal history of other diseases of the digestive system
CPT/HCPCS: 36415; 71045; 71260; 80053; 82550; 82553; 83880; 84484; 85025; 85379; 85610; 85730; 93005; 99284; J1885; Q9967

== ENCOUNTER 2017-11-25 14:17 | Emergency (ER) | payer BC ==
[~2017-11-25] VITALS: Ht 157.5 cm; Wt 61.2 kg
[2017-11-25] MEDS ORDERED: ONDANSETRON HCL INJ 2 MG/ML VIAL IV STA (14:27)
[2017-11-25] MEDS ORDERED: SODIUM CHLORIDE 0.9% 1000ML 1,000 ML IV STA (14:27)
[2017-11-25] MEDS ORDERED: CLOPIDOGREL75 MG PO (14:28)
[2017-11-25] MEDS ORDERED: METOPROLOL SUCC25 MG PO (14:28)
[2017-11-25] MEDS ORDERED: POTASSIUM CHLO10 ME1 PO (14:28)
[2017-11-25] MEDS ORDERED: ASPIR 8181 MG PO (14:28)
[2017-11-25] MEDS ORDERED: DIATRIZOATE MEGL/DIATRIZOA SOD 30 ML BTL PO ONE (14:41)
[2017-11-25] MEDS ORDERED: HYDROMORPHONE 2MG/ML 2 MG/ML ML IV ONE (15:00)
[2017-11-25 15:19] LABS: CLARITY,URINE CLEAR (CLEAR); COLOR,URINE YELLOW (YELLOW); KETONES,URINE NEGATIVE (NEGATIVE); LEUKOCYTE ESTERASE ,URINE NEGATIVE (NEGATIVE); NITRITE,URINE NEGATIVE (NEGATIVE); PROTEIN,URINE DIPSTICK 1+ (NEGATIVE)
[2017-11-25 15:20] LABS: BILIRUBIN,URINE NEGATIVE (NEGATIVE); URINE UROBILINOGEN 0.2 mg/dL (0.2 - 1)
[2017-11-25 15:24] LABS: BACTERIA,URINE FEW /HPF; EPITHELIAL CELLS,URINE MODERATE /LPF; MUCUS,URINE FEW (RARE); RBC,URINE 0-5 /HPF (0-5); WBC,URINE (MAN) 0-5 /HPF (0-5)
[2017-11-25 15:34] LABS: BASOPHILS % 0.3 % (0.0-1.0); EOSINOPHILS % 0.3 % (0.0-6.0); HEMATOCRIT 41.7 % (34.2-44.1); HEMOGLOBIN 14.9 g/dL (12.0-16.0); LYMPHOCYTES # (AUTO) 1.4 (1.0-3.2); LYMPHOCYTES % 20.6 % (18.0-39.1); MEAN CORPUSCULAR HEMOGLOBIN 31.2 pg (28-32); MEAN CORPUSCULAR HGB CONC 35.7 g/dL (31-35); MEAN CORPUSCULAR VOLUME 87.4 fL (81-99); MONOCYTES # (AUTO) 0.3 (0.2-0.8); MONOCYTES % 4.7 % (4.4-11.3); NEUTROPHILS % 73.8 % (38.7-80.0); PLATELET COUNT 209 x10e3/uL (140-360); RED BLOOD COUNT 4.77 x10e6/uL (3.6-5.1); RED CELL DISTRIBUTION WIDTH 12.9 % (11.7-14.4)
[2017-11-25 15:46] LABS: ALANINE AMINOTRANSFERASE 14 IU/L (0-55); ALBUMIN 4.1 g/dL (3.5-5.0); ALBUMIN/GLOBULIN RATIO 1.1 (0.8-2.0); ALKALINE PHOSPHATASE 101 IU/L (40-150); AMYLASE 39 U/L (25-125); ANION GAP 16.6 mmol/L (8-16); BLOOD UREA NITROGEN 15 mg/dL (7-26); BUN/CREATININE RATIO 18 (6-25); CALCIUM 9.9 mg/dL (8.4-10.2); CARBON DIOXIDE 21 mmol/L (22-29); CHLORIDE 107 mmol/L (98-107); CREATININE, SERUM 0.83 mg/dL (0.57-1.11); EST GLOMERULAR FILTRATION RATE > 60 ML/MIN (60-); GLUCOSE 111 mg/dL (74-118); LIPASE 37 U/L (8-78); POTASSIUM 3.6 mmol/L (3.5-5.1); SODIUM 141 mmol/L (136-145)
[2017-11-25] MEDS ORDERED: METRONIDAZOLE 500MG/NS 100ML 100 ML IV STA (17:53)
[2017-11-25] MEDS ORDERED: LEVOFLOXACIN 500 MG TAB PO ONE (18:30)
--- NOTE | 2017-11-25 18:44 | Diagnostic Imaging Report ---
EXAM: CT Abdomen and Pelvis WITH contrast INDICATION: \S\LOW ABD PAIN COMPARISON: CT abdomen and pelvis 06/24/2017. Chest x-ray 06/24/2017. TECHNIQUE: Abdomen and pelvis were scanned utilizing a multidetector helical scanner from the lung base to the pubic symphysis after administration of IV contrast. Coronal and sagittal reformations were obtained. Routine protocol was performed. Scan was performed when during portal venous phase. IV CONTRAST: 100 mL of Isovue 370 ORAL CONTRAST: Gastrografin COMPLICATIONS: None RADIATION DOSE: Total DLP: 648.54 mGy*cm Estimated effective dose: (DLP x 0.015 x size factor) mSv CTDIvol has been reviewed. It is below the limits set by the Radiation Protocol Committee (RPC). FINDINGS: LINES and TUBES: None. LOWER THORAX: Unremarkable HEPATOBILIARY: The liver is diffuse hypodense compared to the spleen, consistent with diffuse hepatic diffuse hepatic steatosis. No focal hepatic lesions. There is intra- and extra- hepatic biliary dilation likely post cholecystectomy resevoir effect. GALLBLADDER: There are cholecystectomy clips. SPLEEN: No splenomegaly. PANCREAS: No focal masses or ductal dilatation. ADRENALS: No adrenal nodules KIDNEYS/URETERS: Kidneys enhance symmetrically. No hydronephrosis. No cystic or solid mass lesions. No stones. GI TRACT: No abnormal distention, wall thickening, or evidence of bowel obstruction. There are diverticula within the colon without evidence of diverticulitis. Appendix is normal. PELVIC ORGANS/BLADDER: Unremarkable. LYMPH NODES: No lymphadenopathy. VESSELS: Unremarkable. The right renal artery demonstrates very early bifurcation.. PERITONEUM / RETROPERITONEUM: No free air or fluid. BONES: Unremarkable. SOFT TISSUES: Unremarkable. IMPRESSION: 1. No acute abnormalities in the abdomen or pelvis. 2. Diffuse hepatic steatosis. Cholecystectomy. 3. Colonic diverticulosis without evidence of diverticulitis. Signed by: Dr. Marty Burkett M.D. on 11/25/2017 6:40 PM
[2017-11-25 19:01] VITALS: BP 117/66
[2017-11-25] MEDS ORDERED: IOPAMIDOL 370 MG/ML 200 ML INFUS..BTL INJ ONE (21:40)
[2017-11-25] MEDS ORDERED: SODIUM CHLORIDE 0.9% 50ML 50 ML ONE (21:40)
== END 2017-11-25 19:32 | disposition home or self-care (01) ==
LOC: ER 14:17
DX: R10.30 Lower abdominal pain, unspecified (principal); R11.2 Nausea with vomiting, unspecified; R19.7 Diarrhea, unspecified; K52.9 Noninfective gastroenteritis and colitis, unspecified; I10 Essential (primary) hypertension; E78.5 Hyperlipidemia, unspecified
CPT/HCPCS: 36415; 74177; 80053; 81001; 82150; 83690; 85025; 87086; 99284; J1170; J2405; J7030; Q9967

== ENCOUNTER 2017-11-28 20:46 | Emergency (ER) | payer BC ==
[~2017-11-28] VITALS: Ht 157.5 cm; Wt 61.2 kg
[~2017-11-28 20:46] MED LIST changes: +METOPROLOL SUCC25 MG PO; +POTASSIUM CHLO10 ME1 PO
[2017-11-28] MEDS ORDERED: SODIUM CHLORIDE 0.9% 1000ML 1,000 ML IV ONE (21:15)
[2017-11-28] MEDS ORDERED: ONDANSETRON HCL INJ 2 MG/ML VIAL IV STA (21:15)
[2017-11-28 21:45] LABS: BASOPHILS % 0.3 % (0.0-1.0); EOSINOPHILS % 0.3 % (0.0-6.0); HEMATOCRIT 39.1 % (34.2-44.1); HEMOGLOBIN 13.5 g/dL (12.0-16.0); LYMPHOCYTES % 16.2 % (18.0-39.1); MEAN CORPUSCULAR HGB CONC 34.5 g/dL (31-35); MEAN CORPUSCULAR VOLUME 89.7 fL (81-99); MONOCYTES # (AUTO) 0.3 (0.2-0.8); MONOCYTES % 4.9 % (4.4-11.3); NEUTROPHILS # (AUTO) 4.8 (2.1-6.9); PLATELET COUNT 184 x10e3/uL (140-360); RED BLOOD COUNT 4.36 x10e6/uL (3.6-5.1); RED CELL DISTRIBUTION WIDTH 13.3 % (11.7-14.4)
[2017-11-28 21:52] LABS: BILIRUBIN,URINE NEGATIVE (NEGATIVE); CLARITY,URINE CLEAR (CLEAR); COLOR,URINE YELLOW (YELLOW); KETONES,URINE NEGATIVE (NEGATIVE); LEUKOCYTE ESTERASE ,URINE NEGATIVE (NEGATIVE); NITRITE,URINE NEGATIVE (NEGATIVE); PROTEIN,URINE DIPSTICK TRACE (NEGATIVE); URINE UROBILINOGEN 0.2 mg/dL (0.2 - 1)
[2017-11-28 21:55] LABS: EPITHELIAL CELLS,URINE RARE /LPF; MUCUS,URINE FEW (RARE); RBC,URINE 0-5 /HPF (0-5)
[2017-11-28 22:05] LABS: ALANINE AMINOTRANSFERASE 13 IU/L (0-55); ALBUMIN/GLOBULIN RATIO 1.1 (0.8-2.0); ALKALINE PHOSPHATASE 95 IU/L (40-150); AMYLASE 40 U/L (25-125); ANION GAP 17.4 mmol/L (8-16); BLOOD UREA NITROGEN 16 mg/dL (7-26); BUN/CREATININE RATIO 17 (6-25); CALCIUM 10.3 mg/dL (8.4-10.2); CARBON DIOXIDE 20 mmol/L (22-29); CHLORIDE 108 mmol/L (98-107); CREATININE, SERUM 0.94 mg/dL (0.57-1.11); EST GLOMERULAR FILTRATION RATE > 60 ML/MIN (60-); GLUCOSE 101 mg/dL (74-118); LIPASE 16 U/L (8-78); POTASSIUM 4.4 mmol/L (3.5-5.1); SODIUM 141 mmol/L (136-145)
--- NOTE | 2017-11-28 23:47 | Diagnostic Imaging Report ---
EXAMINATION: ABDOMEN ACUTE SERIES W/PA CXR INDICATION: Abdominal pain COMPARISON: CT of the abdomen on 11/25/2017 FINDINGS: TUBES and LINES: None. LUNGS: Lungs are well inflated. Lungs are clear. There is no evidence of pneumonia or pulmonary edema. PLEURA: No pleural effusion or pneumothorax. HEART AND MEDIASTINUM: The cardiomediastinal silhouette is unremarkable. BONES AND SOFT TISSUES: No acute osseous lesion. Degenerative changes of the lower lumbar spine Soft tissues are unremarkable. ABDOMEN: No free air under the diaphragm. Nonobstructed bowel gas pattern. The colon demonstrates wrist CT of oral contrast from prior CT on 11/25/2017. IMPRESSION: 1. No acute thoracic abnormality. 2. Nonobstructive bowel gas pattern the abdomen Signed by: Dr. Johann Lock M.D. on 11/28/2017 11:44 PM
[2017-11-29 00:23] VITALS: BP 128/83
== END 2017-11-29 00:35 | disposition home or self-care (01) ==
LOC: ER 20:59
DX: R11.2 Nausea with vomiting, unspecified (principal); R10.9 Unspecified abdominal pain; I10 Essential (primary) hypertension; E78.5 Hyperlipidemia, unspecified; F41.9 Anxiety disorder, unspecified; F32.9 Major depressive disorder, single episode, unspecified
CPT/HCPCS: 36415; 74022; 80053; 81001; 82150; 83690; 85025; 99284; J2405; J7030

== ENCOUNTER 2017-12-05 11:16 | Emergency (ER) | payer BC ==
[~2017-12-05] VITALS: Ht 157.5 cm; Wt 61.2 kg
[2017-12-05] MEDS ORDERED: ASPIRIN 81 MG CHEW TAB PO ONE (12:00)
--- NOTE | 2017-12-05 12:45 | Diagnostic Imaging Report ---
History:CVA Comparison studies:CT head 03/15/2016 Technique: Axial images were obtained from the skull base to the vertex. Coronal and sagittal images reconstructed from the axial data. Intravenous contrast: None Dose modulation, iterative reconstruction, and/or weight based adjustment of the mA/kV was utilized to reduce the radiation dose to as low as reasonably achievable. Findings: Scalp/skull: No abnormalities. Extra-axial spaces: No masses. No fluid collections. Brain sulci: Age-appropriate. Ventricles: Age-appropriate. No hydrocephalus. Parenchyma: Few hypodensities in the supratentorial white matter are small vessel ischemic changes. Chronic small lacunar infarct in the left anterior thalamus. No masses, hemorrhage, acute or chronic cortical vascular insults. Sellar/suprasellar region: No abnormalities. Craniocervical junction: Patent foramen magnum. No Chiari one malformation. Incidental findings: Atherosclerotic calcifications in the carotid siphons . Left cavernous ICA stent in place. Impression: No acute intracranial abnormality. Stable examination Chronic findings: 1. Mild supratentorial white matter small vessel ischemic changes. Small chronic lacunar infarct in the left anterior thalamus. Signed by: DR Heraclio Cagle M.D. on 12/05/2017 12:41 PM
[2017-12-05] MEDS ORDERED: MECLIZINE HCL 12.5 MG TAB PO ONE ×2 (13:45→19:00)
[2017-12-05 13:54] LABS: BASOPHILS % 0.1 % (0.0-1.0); EOSINOPHILS % 0.3 % (0.0-6.0); HEMOGLOBIN 14.3 g/dL (12.0-16.0); LYMPHOCYTES % 13.4 % (18.0-39.1); MEAN CORPUSCULAR HEMOGLOBIN 31.1 pg (28-32); MEAN CORPUSCULAR HGB CONC 34.9 g/dL (31-35); MEAN CORPUSCULAR VOLUME 89.1 fL (81-99); MONOCYTES # (AUTO) 0.4 (0.2-0.8); MONOCYTES % 5.7 % (4.4-11.3); NEUTROPHILS # (AUTO) 5.8 (2.1-6.9); NEUTROPHILS % 80.1 % (38.7-80.0); PLATELET COUNT 215 x10e3/uL (140-360); RED CELL DISTRIBUTION WIDTH 12.8 % (11.7-14.4)
[2017-12-05 13:58] LABS: BILIRUBIN,URINE NEGATIVE (NEGATIVE); CLARITY,URINE SL CLOUDY (CLEAR); COLOR,URINE YELLOW (YELLOW); KETONES,URINE NEGATIVE (NEGATIVE); LEUKOCYTE ESTERASE ,URINE NEGATIVE (NEGATIVE); NITRITE,URINE NEGATIVE (NEGATIVE); PROTEIN,URINE DIPSTICK 1+ (NEGATIVE); URINE UROBILINOGEN 0.2 mg/dL (0.2 - 1)
[2017-12-05 14:00] LABS: AMPHETAMINES SCREEN,URINE NEGATIVE (NEGATIVE); BENZODIAZEPINES SCREEN,URINE NEGATIVE (NEGATIVE); PHENCYCLIDINE SCREEN,URINE NEGATIVE (NEGATIVE)
[2017-12-05 14:02] LABS: INR 0.89; PROTHROMBIN TIME 12.9 seconds (11.9-14.5)
[2017-12-05 14:03] LABS: PARTIAL THROMBOPLASTIN TIME 26.9 seconds (23.8-35.5)
[2017-12-05 14:08] LABS: BACTERIA,URINE MODERATE /HPF; MUCUS,URINE MODERATE (RARE)
[2017-12-05 14:12] LABS: ALANINE AMINOTRANSFERASE 17 IU/L (0-55); ALBUMIN 4.1 g/dL (3.5-5.0); ALBUMIN/GLOBULIN RATIO 1.1 (0.8-2.0); ALKALINE PHOSPHATASE 108 IU/L (40-150); BLOOD UREA NITROGEN 12 mg/dL (7-26); BUN/CREATININE RATIO 15 (6-25); CALCIUM 9.7 mg/dL (8.4-10.2); CARBON DIOXIDE 20 mmol/L (22-29); CHLORIDE 104 mmol/L (98-107); CREATINE KINASE 49 IU/L (29-168); EST GLOMERULAR FILTRATION RATE > 60 ML/MIN (60-); GLUCOSE 127 mg/dL (74-118); SODIUM 137 mmol/L (136-145)
== END 2017-12-05 18:59 | disposition home or self-care (01) ==
LOC: ER 11:16
DX: R11.2 Nausea with vomiting, unspecified (principal); R19.7 Diarrhea, unspecified; I10 Essential (primary) hypertension; E78.5 Hyperlipidemia, unspecified; Z85.3 Personal history of malignant neoplasm of breast; K57.92 Diverticulitis of intestine, part unspecified, without perforation or abscess without bleeding; M54.9 Dorsalgia, unspecified; F32.9 Major depressive disorder, single episode, unspecified
CPT/HCPCS: 36415; 70450; 80053; 80307; 81001; 82550; 82553; 84484; 85025; 85610; 85730; 93005; 99284

== ENCOUNTER → 2019-04-17 | Outpatient (CLI) | payer OTHER ==
[~2019-04-17] MED LIST changes: +OMEPRAZOLE40 MG
--- NOTE | 2019-04-17 15:21 | Diagnostic Imaging Report ---
Bone density study Clinical History: Osteoporosis screening Bone mineral density measurement Lumbar spine 0.941 gm/cm2 Femoral neck 0.673 gm/cm2 Standard deviation from young adult population (T-score) Lumbar spine -1.0 Femoral neck -1.6 Standard deviation for age adjusted population (Z-score) Lumbar spine 0.6 Femoral neck -0.2 Comments: The alignment of lumbar spine and femoral necks are satisfactory. There is osteopenia of the lumbar spine and femoral neck. Diagnostic criteria for osteoporosis BMD: Bone mineral density Normal: BMD measurement less than one standard deviation from young adult population Osteopenia: BMD measurement between 1 and 2.5 standard deviations Osteoporosis: BMD measurement greater than 2.5 standard deviations Severe osteoporosis: Osteoporosis and one or more fragility fractures Signed by: Dr. Kelechi Thacker MD on 04/17/2019 3:18 PM
== END ==
LOC: MAMMO 13:31
PROVIDERS: ATTEND Family Medicine
DX: Z12.31 Encounter for screening mammogram for malignant neoplasm of breast (principal); Z13.820 Encounter for screening for osteoporosis
CPT/HCPCS: 77067; 77080

== ENCOUNTER → 2019-07-02 | Outpatient (CLI) | payer OTHER ==
--- NOTE | 2019-07-02 10:22 | Diagnostic Imaging Report ---
EXAMINATION: MRI of the brain without contrast. HISTORY: Severe frequent headaches, rule out cerebral aneurysms. COMPARISON: Head CT 12/05/2017 TECHNIQUE: Sagittal T2; axial DWI, T2, FLAIR, T1-IR, T2 gradient echo; coronal FLAIR. FINDINGS: Parenchyma: 1. Few scattered and mildly confluent periventricular white matter T2 and FLAIR hyperintense foci, most likely corresponds to nonspecific chronic microvascular ischemic changes and/or a combination was chronic migraine. 2. Small chronic lacunar infarcts in the right posterior putamen and bilateral thalami. 3. Incidentally noted prominence of the perivascular spaces throughout the supratentorial compartment. 4. No mass, hemorrhage, acute or chronic infarcts. Skull: Unremarkable. Vessels: Expected flow voids present in the major arteries and dural sinuses. Extra-axial spaces: No abnormal signal intensity or mass effect. Brain volume: Within normal limits for age. Ventricles: No hydrocephalus or displacement. Foramen magnum: Unremarkable. Sella: Unremarkable. Paranasal / mastoid sinuses: No significant inflammatory disease. IMPRESSION: 1. No acute intracranial abnormalities. 2. Mild supratentorial white matter hyperintense foci, likely the result of chronic microvascular ischemic changes and migraine related. 3. No discrete aneurysms, if clinical concern remains, consider a CT angiogram of the head with contrast or MR angiogram of the head without contrast for further evaluation. Signed by: Dr. Gala Bolivar M.D. on 07/02/2019 10:19 AM
== END ==
LOC: MRI 08:19
PROVIDERS: ATTEND Family Medicine
DX: G44.52 New daily persistent headache (NDPH) (principal); I67.1 Cerebral aneurysm, nonruptured
CPT/HCPCS: 70551

== ENCOUNTER 2020-05-13 10:32 | Inpatient (IN) | payer OTHER ==
[~2020-05-13] VITALS: Ht 157.5 cm; Wt 64.0 kg
[~2020-05-13 10:32] MED LIST changes: -OMEPRAZOLE40 MG
[2020-05-13] MEDS ORDERED: ASPIRIN 81 MG CHEW TAB PO ONE (10:45)
[2020-05-13] MEDS ORDERED: DIATRIZOATE MEGL/DIATRIZOA SOD 30 ML BTL PO ONE (11:05)
[2020-05-13] MEDS ORDERED: METRONIDAZOLE 500MG/NS 100ML 100 ML IV ONE (11:15)
[2020-05-13 11:27] LABS: BASOPHILS % 0.4 % (0.0-1.0); EOSINOPHILS # (AUTO) 0.1 (0.0-0.4); EOSINOPHILS % 0.8 % (0.0-6.0); HEMOGLOBIN 14.3 g/dL (12.0-16.0); LYMPHOCYTES # (AUTO) 1.3 (1.0-3.2); LYMPHOCYTES % 16.9 % (18.0-39.1); MEAN CORPUSCULAR HEMOGLOBIN 30.8 pg (28-32); MEAN CORPUSCULAR VOLUME 90.3 fL (81-99); MONOCYTES # (AUTO) 0.4 (0.2-0.8); MONOCYTES % 4.6 % (4.4-11.3); NEUTROPHILS # (AUTO) 6.1 (2.1-6.9); NEUTROPHILS % 76.9 % (38.7-80.0); PLATELET COUNT 175 x10e3/uL (140-360); RED BLOOD COUNT 4.65 x10e6/uL (3.6-5.1); RED CELL DISTRIBUTION WIDTH 14.1 % (11.7-14.4)
[2020-05-13] MEDS ORDERED: PIPERACILLIN/TAZOBAC 3.375 GM in SODIUM CHLORIDE 0.9% 50ML 50 ML IV ONE (11:30)
[2020-05-13 11:45] LABS: CLARITY,URINE SL CLOUDY (CLEAR); COLOR,URINE YELLOW (YELLOW); KETONES,URINE NEGATIVE (NEGATIVE); LEUKOCYTE ESTERASE ,URINE SMALL (NEGATIVE); NITRITE,URINE NEGATIVE (NEGATIVE); PROTEIN,URINE DIPSTICK NEGATIVE (NEGATIVE); URINE UROBILINOGEN 0.2 mg/dL (0.2 - 1)
[2020-05-13] MEDS ORDERED: ONDANSETRON HCL INJ 2MG/ML 2ML 2 MG/ML VIAL IV STA (11:48)
[2020-05-13] MEDS ORDERED: SODIUM CHLORIDE 0.9% 1000ML 1,000 ML IV STA (11:48)
[2020-05-13 11:55] LABS: BACTERIA,URINE RARE /HPF; RBC,URINE 0-5 /HPF (0-5); WBC,URINE (MAN) 0-5 /HPF (0-5)
[2020-05-13 11:56] LABS: EPITHELIAL CELLS,URINE FEW /LPF
[2020-05-13] MEDS ORDERED: MORPHINE SULFATE INJ 4 MG/ML INJ 1ML ONE (11:59)
[2020-05-13] MEDS ORDERED: ONDANSETRON HCL INJ 2MG/ML 2ML 2 MG/ML VIAL ONE (11:59)
[2020-05-13] MEDS ORDERED: MORPHINE SULFATE INJ 4 MG/ML INJ 1ML IV PRN ×2 (12:00→14:15)
[2020-05-13 12:54] LABS: ALANINE AMINOTRANSFERASE 19 IU/L (0-55); ALBUMIN 3.3 g/dL (3.5-5.0); ALBUMIN/GLOBULIN RATIO 0.9 (0.8-2.0); ALKALINE PHOSPHATASE 92 IU/L (40-150); ANION GAP 12.7 mmol/L (8-16); BLOOD UREA NITROGEN 16 mg/dL (7-26); BUN/CREATININE RATIO 22 (6-25); CALCIUM 8.6 mg/dL (8.4-10.2); CARBON DIOXIDE 23 mmol/L (22-29); CHLORIDE 107 mmol/L (98-107); CREATINE KINASE 66 IU/L (29-168); CREATININE, SERUM 0.73 mg/dL (0.57-1.11); EST GLOMERULAR FILTRATION RATE > 60 ML/MIN (60-); GLUCOSE 85 mg/dL (74-118); POTASSIUM 3.7 mmol/L (3.5-5.1); SODIUM 139 mmol/L (136-145)
[2020-05-13] MEDS ORDERED: IOPAMIDOL 370 MG/ML 200 ML INFUS..BTL INJ ONE (13:12)
[2020-05-13] MEDS ORDERED: SODIUM CHLORIDE 0.9% 50ML 50 ML ONE ×2 (13:12→19:58)
[2020-05-13] MEDS ORDERED: MORPHINE SULFATE INJ 2 MG/ML SYR IV PRN (14:15)
[2020-05-13] MEDS: METRONIDAZOLE 500MG/NS 100ML 100 ML IV SCH (18:00)
[2020-05-13] MEDS ORDERED: METRONIDAZOLE 500MG/NS 100ML IV SCH (18:00)
[2020-05-13 18:09] VITALS: BP 112/64
[2020-05-13 18:41] VITALS: BP 112/64
[2020-05-13] MEDS ORDERED: MECLIZINE HCL12.5 MG PO (18:49)
[2020-05-13] MEDS ORDERED: CYCLOBENZAPRINE10 MG PO (18:50)
[2020-05-13] MEDS ORDERED: LIPITOR10 MG PO (18:50)
[2020-05-13] MEDS ORDERED: LEVSIN0.125 MG PO (18:51)
[2020-05-13] MEDS ORDERED: TOPAMAX100 MG PO (18:52)
[2020-05-13] MEDS ORDERED: DICYCLOMINE HCL10 MG PO (18:52)
[2020-05-13] MEDS ORDERED: PENTOXIFYLLINE400 MG PO (18:53)
[2020-05-13] MEDS ORDERED: ULTRAM 50MG50 MG PO (18:53)
[2020-05-13] MEDS ORDERED: CYCLOBENZAPRINE HCL 10 MG TAB PO PRN (19:30)
[2020-05-13] MEDS ORDERED: MECLIZINE HCL 12.5 MG TAB PO PRN (19:30)
[2020-05-13] MEDS ORDERED: TRAMADOL HCL 50 MG TAB PO PRN (19:45)
[2020-05-13] MEDS ORDERED: PIPERACILLIN/TAZOBAC 3.375 GM VIAL ONE (19:56)
[2020-05-13] MEDS ORDERED: HYOSCYAMINE 0.125 MG TAB PO PRN (20:15)
[2020-05-13] MEDS ORDERED: ACETAMINOPHEN/CODEINE 300MG - 30MG TAB PO PRN (20:15)
[2020-05-13] MEDS ORDERED: ONDANSETRON HCL INJ 2MG/ML 2ML 2 MG/ML VIAL IV PRN (20:15)
[2020-05-13] MEDS ORDERED: HYDRALAZINE HCL 20 MG/ML VIAL IV PRN (20:15)
[2020-05-13] MEDS ORDERED: ACETAMINOPHEN 325 MG TAB PO PRN (20:15)
[2020-05-13] MEDS ORDERED: MELATONIN 5 MG TABLET PO PRN (20:15)
[2020-05-13 20:28] VITALS: BP 101/57
[2020-05-13] MEDS ORDERED: SERTRALINE HCL 50 MG TAB PO SCH (21:00)
[2020-05-13] MEDS ORDERED: ATORVASTATIN 20 MG TAB PO SCH (21:00)
[2020-05-13] MEDS: DICYCLOMINE HCL 10 MG CAP PO SCH (21:00)
[2020-05-13] MEDS: METOPROLOL SUCCINATE 25 MG TAB XL PO SCH (21:02)
[2020-05-13] MEDS: TOPIRAMATE 25 MG TAB PO SCH (21:07)
[2020-05-13] MEDS: PIPERACILLIN/TAZOBAC 3.375 GM in SODIUM CHLORIDE 0.9% 50ML 50 ML IV SCH (21:15)
[2020-05-13] MEDS: MORPHINE SULFATE INJ 2 MG/ML SYR IV PRN (21:15)
[2020-05-13] MEDS: ONDANSETRON HCL INJ 2MG/ML 2ML 2 MG/ML VIAL IV PRN (21:16)
[2020-05-13] MEDS ORDERED: SODIUM CHLORIDE 0.9% 500ML 500 ML ONE (21:17)
[2020-05-13] MEDS ORDERED: PIPER-TAZ 3.375 GM / NS 50ML IV SCH (22:00)
[2020-05-13 22:33] VITALS: BP 101/57
[2020-05-13 23:57] VITALS: BP 101/56
[2020-05-14] VITALS (7 sets, daily range): BP systolic 78–124; BP diastolic 56–78
[2020-05-14] MEDS ORDERED: SODIUM CHLORIDE 0.9% 50ML 50 ML ONE (04:40)
[2020-05-14] MEDS ORDERED: PIPERACILLIN/TAZOBAC 3.375 GM VIAL ONE (04:40)
[2020-05-14 05:10] LABS: BASOPHILS % 0.1 % (0.0-1.0); EOSINOPHILS % 0.3 % (0.0-6.0); HEMATOCRIT 37.6 % (34.2-44.1); HEMOGLOBIN 12.7 g/dL (12.0-16.0); LYMPHOCYTES # (AUTO) 1.3 (1.0-3.2); MEAN CORPUSCULAR HEMOGLOBIN 30.9 pg (28-32); MEAN CORPUSCULAR HGB CONC 33.8 g/dL (31-35); MEAN CORPUSCULAR VOLUME 91.5 fL (81-99); MONOCYTES # (AUTO) 0.3 (0.2-0.8); MONOCYTES % 4.5 % (4.4-11.3); NEUTROPHILS # (AUTO) 5.4 (2.1-6.9); PLATELET COUNT 155 x10e3/uL (140-360); RED BLOOD COUNT 4.11 x10e6/uL (3.6-5.1); RED CELL DISTRIBUTION WIDTH 13.4 % (11.7-14.4)
[2020-05-14] MEDS: PIPERACILLIN/TAZOBAC 3.375 GM in SODIUM CHLORIDE 0.9% 50ML 50 ML IV SCH (05:23)
[2020-05-14] MEDS: MORPHINE SULFATE INJ 2 MG/ML SYR IV PRN (05:23)
[2020-05-14] MEDS: METRONIDAZOLE 500MG/NS 100ML 100 ML IV SCH ×3 (05:23→12:00)
[2020-05-14] MEDS: ONDANSETRON HCL INJ 2MG/ML 2ML 2 MG/ML VIAL IV PRN (05:24)
[2020-05-14 05:36] LABS: ALANINE AMINOTRANSFERASE 54 IU/L (0-55); ALBUMIN 3.1 g/dL (3.5-5.0); ALBUMIN/GLOBULIN RATIO 0.9 (0.8-2.0); ALKALINE PHOSPHATASE 108 IU/L (40-150); ANION GAP 10.8 mmol/L (8-16); BLOOD UREA NITROGEN 11 mg/dL (7-26); BUN/CREATININE RATIO 14 (6-25); CALCIUM 8.2 mg/dL (8.4-10.2); CARBON DIOXIDE 22 mmol/L (22-29); CHLORIDE 109 mmol/L (98-107); CREATININE, SERUM 0.76 mg/dL (0.57-1.11); EST GLOMERULAR FILTRATION RATE > 60 ML/MIN (60-); GLUCOSE 114 mg/dL (74-118); POTASSIUM 3.8 mmol/L (3.5-5.1); SODIUM 138 mmol/L (136-145)
[2020-05-14] MEDS ORDERED: MORPHINE SULFATE INJ 2 MG/ML SYR IV PRN (06:30)
[2020-05-14] MEDS ORDERED: METRONIDAZOLE500 MG PO (06:31)
[2020-05-14] MEDS ORDERED: CIPRO500 MG PO (06:31)
[2020-05-14] MEDS ORDERED: DICYCLOMINE HCL10 MG PO (06:31)
[2020-05-14] MEDS ORDERED: PANTOPRAZOLE SOD 40 MG TABEC PO SCH (07:30)
[2020-05-14] MEDS: METOPROLOL SUCCINATE 25 MG TAB XL PO SCH (09:00)
[2020-05-14] MEDS: TOPIRAMATE 25 MG TAB PO SCH (09:00)
[2020-05-14] MEDS: DICYCLOMINE HCL 10 MG CAP PO SCH (09:00)
[2020-05-14] MEDS ORDERED: ASPIRIN 81 MG CHEW TAB PO SCH (09:00)
[2020-05-14] MEDS ORDERED: PENTOXIFYLLINE 400 MG TAB CR PO SCH (09:00)
[2020-05-14] MEDS ORDERED: ONDANSETRON HCL 4 MG ORAL DISINTEGRATING TAB PO PRN (13:15)
== END 2020-05-14 13:30 | disposition home or self-care (01) | DRG 392 ==
LOC: ER 11:38 → ERHOLD 14:03 → MED/SURG2 18:02
PROVIDERS: ADMIT Internal Medicine; ATTEND Internal Medicine
DX: K57.32 Diverticulitis of large intestine without perforation or abscess without bleeding (principal); I10 Essential (primary) hypertension; E78.5 Hyperlipidemia, unspecified; I25.10 Atherosclerotic heart disease of native coronary artery without angina pectoris; Z95.1 Presence of aortocoronary bypass graft; G89.29 Other chronic pain; G89.4 Chronic pain syndrome; F32.9 Major depressive disorder, single episode, unspecified; C50.919 Malignant neoplasm of unspecified site of unspecified female breast; Z20.822 Contact with and (suspected) exposure to COVID-19
CPT/HCPCS: 36415; 74177; 80053; 81001; 82550; 82553; 83605; 83690; 84484; 85025; 87040; 99284; J2270; J2405; J2543; J7030; J7040; Q9967; U0002

== ENCOUNTER 2020-06-08 11:16 | Emergency (ER) | payer OTHER ==
[~2020-06-08] VITALS: Ht 157.5 cm; Wt 64.0 kg
[~2020-06-08 11:16] MED LIST changes: +CIPRO500 MG PO; +DICYCLOMINE HCL10 MG PO; +LEVSIN0.125 MG PO; +LIPITOR10 MG PO; +MECLIZINE HCL12.5 MG PO; +METRONIDAZOLE500 MG PO; +PENTOXIFYLLINE400 MG PO; +TOPAMAX100 MG PO; +ULTRAM 50MG50 MG PO
[2020-06-08] MEDS ORDERED: HYDROCODONE/APAP 5MG-325MG TAB PO NR (13:00)
== END 2020-06-08 14:08 | disposition home or self-care (01) ==
LOC: ER 11:27
DX: M54.5 Low back pain (principal); I10 Essential (primary) hypertension; I25.10 Atherosclerotic heart disease of native coronary artery without angina pectoris; F32.9 Major depressive disorder, single episode, unspecified; G25.81 Restless legs syndrome; Z85.3 Personal history of malignant neoplasm of breast; Z86.79 Personal history of other diseases of the circulatory system
CPT/HCPCS: 72125; 72128; 72131; 93005; 99283

== ENCOUNTER 2020-07-08 15:47 | Inpatient (IN) | payer OTHER ==
[~2020-07-08] VITALS: Ht 157.5 cm; Wt 60.8 kg
[2020-07-08 16:35] LABS: BASOPHILS % 0.2 % (0.0-1.0); EOSINOPHILS # (AUTO) 0.1 (0.0-0.4); EOSINOPHILS % 1.5 % (0.0-6.0); HEMATOCRIT 39.3 % (34.2-44.1); HEMOGLOBIN 13.7 g/dL (12.0-16.0); LYMPHOCYTES # (AUTO) 1.6 (1.0-3.2); LYMPHOCYTES % 34.3 % (18.0-39.1); MEAN CORPUSCULAR HEMOGLOBIN 31.4 pg (28-32); MEAN CORPUSCULAR HGB CONC 34.9 g/dL (31-35); MEAN CORPUSCULAR VOLUME 89.9 fL (81-99); MONOCYTES # (AUTO) 0.3 (0.2-0.8); MONOCYTES % 6.5 % (4.4-11.3); NEUTROPHILS # (AUTO) 2.7 (2.1-6.9); NEUTROPHILS % 57.3 % (38.7-80.0); PLATELET COUNT 178 x10e3/uL (140-360); RED BLOOD COUNT 4.37 x10e6/uL (3.6-5.1); RED CELL DISTRIBUTION WIDTH 13.3 % (11.7-14.4)
[2020-07-08 16:51] LABS: INR 0.89; PARTIAL THROMBOPLASTIN TIME 30.2 seconds (23.8-35.5); PROTHROMBIN TIME 12.6 seconds (11.9-14.5)
[2020-07-08 16:53] LABS: ALANINE AMINOTRANSFERASE 21 IU/L (0-55); ALBUMIN 3.6 g/dL (3.5-5.0); ALKALINE PHOSPHATASE 88 IU/L (40-150); ANION GAP 14.1 mmol/L (8-16); BLOOD UREA NITROGEN 14 mg/dL (7-26); BUN/CREATININE RATIO 18 (6-25); CALCIUM 9.1 mg/dL (8.4-10.2); CARBON DIOXIDE 22 mmol/L (22-29); CHLORIDE 106 mmol/L (98-107); CREATINE KINASE 87 IU/L (29-168); CREATININE, SERUM 0.77 mg/dL (0.57-1.11); EST GLOMERULAR FILTRATION RATE > 60 ML/MIN (60-); GLUCOSE 125 mg/dL (74-118); POTASSIUM 4.1 mmol/L (3.5-5.1); SODIUM 138 mmol/L (136-145)
[2020-07-08 17:04] LABS: AMPHETAMINES SCREEN,URINE NEGATIVE (NEGATIVE); BENZODIAZEPINES SCREEN,URINE NEGATIVE (NEGATIVE); COLOR,URINE YELLOW (YELLOW); KETONES,URINE NEGATIVE (NEGATIVE); LEUKOCYTE ESTERASE ,URINE NEGATIVE (NEGATIVE); NITRITE,URINE NEGATIVE (NEGATIVE); PHENCYCLIDINE SCREEN,URINE NEGATIVE (NEGATIVE); PROTEIN,URINE DIPSTICK NEGATIVE (NEGATIVE); URINE UROBILINOGEN 0.2 mg/dL (0.2 - 1)
[2020-07-08 17:05] LABS: CLARITY,URINE CLEAR (CLEAR)
[2020-07-08 17:23] LABS: BACTERIA,URINE RARE /HPF; EPITHELIAL CELLS,URINE FEW /LPF; MUCUS,URINE FEW (RARE)
[2020-07-08 20:00] VITALS: BP 114/62
[2020-07-08 21:31] VITALS: BP 112/67
[2020-07-08 21:54] VITALS: BP 112/67
[2020-07-08 23:49] VITALS: BP 94/56
[2020-07-09] VITALS (9 sets, daily range): BP systolic 91–138; BP diastolic 63–76
[2020-07-09 05:13] LABS: BASOPHILS % 0.6 % (0.0-1.0); EOSINOPHILS # (AUTO) 0.1 (0.0-0.4); EOSINOPHILS % 2.5 % (0.0-6.0); HEMATOCRIT 40.8 % (34.2-44.1); HEMOGLOBIN 13.9 g/dL (12.0-16.0); LYMPHOCYTES # (AUTO) 1.3 (1.0-3.2); LYMPHOCYTES % 39.9 % (18.0-39.1); MEAN CORPUSCULAR HGB CONC 34.1 g/dL (31-35); MEAN CORPUSCULAR VOLUME 90.9 fL (81-99); MONOCYTES # (AUTO) 0.2 (0.2-0.8); MONOCYTES % 7.2 % (4.4-11.3); NEUTROPHILS # (AUTO) 1.6 (2.1-6.9); NEUTROPHILS % 49.5 % (38.7-80.0); PLATELET COUNT 159 x10e3/uL (140-360); RED BLOOD COUNT 4.49 x10e6/uL (3.6-5.1); RED CELL DISTRIBUTION WIDTH 13.3 % (11.7-14.4)
[2020-07-09 05:34] LABS: ALANINE AMINOTRANSFERASE 18 IU/L (0-55); ALBUMIN 3.3 g/dL (3.5-5.0); ALKALINE PHOSPHATASE 82 IU/L (40-150); ANION GAP 11.8 mmol/L (8-16); BLOOD UREA NITROGEN 15 mg/dL (7-26); BUN/CREATININE RATIO 21 (6-25); CARBON DIOXIDE 23 mmol/L (22-29); CHLORIDE 109 mmol/L (98-107); CREATININE, SERUM 0.72 mg/dL (0.57-1.11); EST GLOMERULAR FILTRATION RATE > 60 ML/MIN (60-); GLUCOSE 89 mg/dL (74-118); POTASSIUM 3.8 mmol/L (3.5-5.1); SODIUM 140 mmol/L (136-145)
[2020-07-09] MEDS ORDERED: ASPIRIN 81 MG ENTERIC COATED PO SCH (09:00)
== END 2020-07-09 20:26 | disposition home or self-care (01) | DRG 69 ==
LOC: ER 17:35 → ERHOLD 18:18 → MED/SURG 19:44
PROVIDERS: ADMIT Internal Medicine; ATTEND Internal Medicine
DX: G45.9 Transient cerebral ischemic attack, unspecified (principal); R47.81 Slurred speech; R27.0 Ataxia, unspecified; I10 Essential (primary) hypertension; I25.10 Atherosclerotic heart disease of native coronary artery without angina pectoris; Z95.1 Presence of aortocoronary bypass graft; Z85.3 Personal history of malignant neoplasm of breast; R42 Dizziness and giddiness; R00.1 Bradycardia, unspecified; R55 Syncope and collapse; Z20.822 Contact with and (suspected) exposure to COVID-19
CPT/HCPCS: 36415; 70450; 70544; 70547; 70551; 80053; 80307; 81001; 82550; 82553; 84484; 85025; 85610; 85730; 93005; 99284; U0002

== ENCOUNTER 2020-10-10 13:37 | Inpatient (IN) | payer OTHER ==
[~2020-10-10] VITALS: Ht 157.5 cm; Wt 67.1 kg
[2020-10-10] MEDS ORDERED: SODIUM CHLORIDE 0.9% 1000ML 1,000 ML IV STA (13:52)
[2020-10-10] MEDS ORDERED: ONDANSETRON HCL INJ 2MG/ML 2ML 2 MG/ML VIAL IV STA (13:52)
[2020-10-10 14:06] LABS: BASOPHILS % 0.4 % (0.0-1.0); HEMATOCRIT 38.6 % (34.2-44.1); HEMOGLOBIN 13.5 g/dL (12.0-16.0); LYMPHOCYTES # (AUTO) 0.7 (1.0-3.2); LYMPHOCYTES % 14.9 % (18.0-39.1); MEAN CORPUSCULAR HEMOGLOBIN 30.3 pg (28-32); MEAN CORPUSCULAR VOLUME 86.5 fL (81-99); MONOCYTES # (AUTO) 0.1 (0.2-0.8); NEUTROPHILS # (AUTO) 4.1 (2.1-6.9); NEUTROPHILS % 82.1 % (38.7-80.0); PLATELET COUNT 69 x10e3/uL (140-360); RED BLOOD COUNT 4.46 x10e6/uL (3.6-5.1); RED CELL DISTRIBUTION WIDTH 13.3 % (11.7-14.4)
[2020-10-10 14:24] LABS: ALBUMIN 3.1 g/dL (3.5-5.0); ALBUMIN/GLOBULIN RATIO 0.8 (0.8-2.0); ANION GAP 16.4 mmol/L (8-16); CALCIUM 8.3 mg/dL (8.4-10.2); CREATININE, SERUM 0.86 mg/dL (0.57-1.11); INR 1.04; MAGNESIUM 1.5 MG/DL (1.3-2.1); POTASSIUM 3.4 mmol/L (3.5-5.1); PROTHROMBIN TIME 13.8 seconds (11.9-14.5)
[2020-10-10 14:25] LABS: PARTIAL THROMBOPLASTIN TIME 35.4 seconds (23.8-35.5)
[2020-10-10 14:30] LABS: CREATINE KINASE MB 4.5 ng/mL (0-5.0)
[2020-10-10] MEDS ORDERED: IOPAMIDOL 370 MG/ML 200 ML INFUS..BTL INJ ONE (14:50)
[2020-10-10] MEDS ORDERED: SODIUM CHLORIDE 0.9% 50ML 50 ML ONE (14:50)
[2020-10-10 15:00] LABS: CLARITY,URINE HAZY (CLEAR); COLOR,URINE YELLOW (YELLOW); KETONES,URINE 1+ (NEGATIVE); LEUKOCYTE ESTERASE ,URINE NEGATIVE (NEGATIVE); NITRITE,URINE POSITIVE (NEGATIVE); PROTEIN,URINE DIPSTICK >=300 (NEGATIVE); URINE UROBILINOGEN 0.2 mg/dL (0.2 - 1)
[2020-10-10 15:01] LABS: AMORPHOUS SEDIMENT,URINE FEW (FEW); BACTERIA,URINE MANY /HPF; EPITHELIAL CELLS,URINE FEW /LPF; MUCUS,URINE MODERATE (RARE); RBC,URINE 21-50 /HPF (0-5); WBC,URINE (MAN) 21-50 /HPF (0-5)
[2020-10-10 15:09] LABS: BAND NEUTROPHILS % (MANUAL) 8 %; LYMPHOCYTES % (MANUAL) 15 % (19-48); MONOCYTES % (MANUAL) 5 % (3.4-9.0); NEUTROPHILS % (MANUAL) 67 % (40-74); PLATELET ESTIMATE MODERATELY DECREASED; PLATELET MORPHOLOGY COMMENT NORMAL
[2020-10-10] MEDS ORDERED: DICYCLOMINE HCL 20 MG/2 ML VIAL IM ONE ×2 (15:15→15:26)
[2020-10-10] MEDS: CEFTRIAXONE 1 GM in SODIUM CHLORIDE 0.9% 50ML 50 ML IV SCH ×2 (17:30→21:24)
[2020-10-10] MEDS: SODIUM CHLORIDE 0.9% 1000ML 1,000 ML IV SCH (17:30)
[2020-10-10 17:45] VITALS: BP 108/52
[2020-10-10 18:04] VITALS: BP 108/52
[2020-10-10] MEDS: MORPHINE SULFATE INJ 2 MG/ML SYR IV PRN ×2 (18:15→21:49)
[2020-10-10] MEDS ORDERED: ACETAMINOPHEN 325 MG TAB PO PRN (19:15)
[2020-10-10 20:00] VITALS: BP 112/59
[2020-10-10] MEDS ORDERED: TRAMADOL HCL 50 MG TAB PO PRN (20:00)
[2020-10-10] MEDS ORDERED: TOPIRAMATE 25 MG TAB PO PRN (20:00)
[2020-10-10 21:00] VITALS: BP 112/59
[2020-10-10] MEDS: ATORVASTATIN 20 MG TAB PO SCH (21:24)
[2020-10-10] MEDS: SERTRALINE HCL 50 MG TAB PO SCH (21:25)
[2020-10-10] MEDS: ONDANSETRON HCL INJ 2MG/ML 2ML 2 MG/ML VIAL IV PRN (21:49)
[2020-10-10 22:29] LABS: CREATINE KINASE MB 4.5 ng/mL (0-5.0)
[2020-10-11] VITALS (9 sets, daily range): BP systolic 94–128; BP diastolic 49–75
[2020-10-11] MEDS: SODIUM CHLORIDE 0.9% 1000ML 1,000 ML IV SCH ×3 (00:45→15:51)
[2020-10-11] MEDS: ONDANSETRON HCL INJ 2MG/ML 2ML 2 MG/ML VIAL IV PRN ×3 (02:39→20:25)
[2020-10-11 05:01] LABS: HEMATOCRIT 32.4 % (34.2-44.1); HEMOGLOBIN 11.4 g/dL (12.0-16.0); MEAN CORPUSCULAR HEMOGLOBIN 30.5 pg (28-32); MEAN CORPUSCULAR HGB CONC 35.2 g/dL (31-35); MEAN CORPUSCULAR VOLUME 86.6 fL (81-99); RED BLOOD COUNT 3.74 x10e6/uL (3.6-5.1); RED CELL DISTRIBUTION WIDTH 13.4 % (11.7-14.4)
[2020-10-11 05:02] LABS: BASOPHILS % 0.2 % (0.0-1.0); LYMPHOCYTES # (AUTO) 0.7 (1.0-3.2); LYMPHOCYTES % 12.7 % (18.0-39.1); MONOCYTES # (AUTO) 0.2 (0.2-0.8); MONOCYTES % 3.1 % (4.4-11.3); NEUTROPHILS # (AUTO) 4.2 (2.1-6.9); NEUTROPHILS % 82.8 % (38.7-80.0); PLATELET COUNT 68 x10e3/uL (140-360)
[2020-10-11 05:33] LABS: CREATINE KINASE MB 6.8 ng/mL (0-5.0)
[2020-10-11 05:56] LABS: ALBUMIN 2.5 g/dL (3.5-5.0); ALBUMIN/GLOBULIN RATIO 0.8 (0.8-2.0); ANION GAP 12.1 mmol/L (8-16); CALCIUM 7.3 mg/dL (8.4-10.2); CREATININE, SERUM 0.71 mg/dL (0.57-1.11); POTASSIUM 3.1 mmol/L (3.5-5.1)
[2020-10-11 07:21] LABS: BAND NEUTROPHILS % (MANUAL) 9 %; EOSINOPHILS % (MANUAL) 1 % (0-7); LYMPHOCYTES % (MANUAL) 6 % (19-48); MONOCYTES % (MANUAL) 3 % (3.4-9.0); NEUTROPHILS % (MANUAL) 81 % (40-74); PLATELET ESTIMATE MODERATELY DECREASED; PLATELET MORPHOLOGY COMMENT NORMAL; RBC MORPHOLOGY COMMENT NORMAL
[2020-10-11] MEDS: MORPHINE SULFATE INJ 2 MG/ML SYR IV PRN ×2 (08:05→20:25)
[2020-10-11] MEDS: OMEPRAZOLE 20 MG CAP PO SCH ×2 (08:16→15:51)
[2020-10-11] MEDS: CEFTRIAXONE 1 GM in SODIUM CHLORIDE 0.9% 50ML 50 ML IV SCH ×2 (08:16→20:26)
[2020-10-11] MEDS: METOPROLOL SUCCINATE 25 MG TAB XL PO SCH ×2 (08:16→15:51)
[2020-10-11] MEDS: POTASSIUM CHLORIDE 10MEQ EA PO SCH (08:17)
[2020-10-11] MEDS ORDERED: POTASSIUM CHLORIDE 20MEQ/100ML 200 ML IV ONE (09:25)
[2020-10-11] MEDS ORDERED: BISACODYL 5 MG TAB EC PO ONE ×2 (09:30→10:00)
[2020-10-11] MEDS ORDERED: CITRATE OF MAGNESIA 300ML BOTTLE PO ONE ×2 (10:00→11:00)
[2020-10-11] MEDS ORDERED: ONDANSETRON HCL INJ 2MG/ML 2ML 2 MG/ML VIAL IV ONE (11:45)
[2020-10-11] MEDS: SERTRALINE HCL 50 MG TAB PO SCH (20:25)
[2020-10-11] MEDS: ATORVASTATIN 20 MG TAB PO SCH (20:25)
[2020-10-12] VITALS (8 sets, daily range): BP systolic 98–117; BP diastolic 51–69
[2020-10-12] MEDS: MORPHINE SULFATE INJ 2 MG/ML SYR IV PRN ×3 (00:30→19:35)
[2020-10-12] MEDS: SODIUM CHLORIDE 0.9% 1000ML 1,000 ML IV SCH ×3 (00:32→17:17)
[2020-10-12 04:53] LABS: BASOPHILS % 0.3 % (0.0-1.0); HEMATOCRIT 31.8 % (34.2-44.1); HEMOGLOBIN 10.9 g/dL (12.0-16.0); LYMPHOCYTES # (AUTO) 1.1 (1.0-3.2); LYMPHOCYTES % 15.6 % (18.0-39.1); MEAN CORPUSCULAR HGB CONC 34.3 g/dL (31-35); MEAN CORPUSCULAR VOLUME 87.6 fL (81-99); MONOCYTES # (AUTO) 0.2 (0.2-0.8); MONOCYTES % 2.8 % (4.4-11.3); NEUTROPHILS # (AUTO) 5.8 (2.1-6.9); NEUTROPHILS % 80.5 % (38.7-80.0); PLATELET COUNT 100 x10e3/uL (140-360); RED BLOOD COUNT 3.63 x10e6/uL (3.6-5.1); RED CELL DISTRIBUTION WIDTH 14.1 % (11.7-14.4)
[2020-10-12 05:31] LABS: ANION GAP 10.2 mmol/L (8-16); CALCIUM 7.1 mg/dL (8.4-10.2); CREATININE, SERUM 0.65 mg/dL (0.57-1.11); POTASSIUM 3.2 mmol/L (3.5-5.1)
[2020-10-12] MEDS ORDERED: CITRATE OF MAGNESIA 300ML BOTTLE PO ONE (07:00)
[2020-10-12] MEDS: OMEPRAZOLE 20 MG CAP PO SCH ×2 (07:30→17:14)
[2020-10-12] MEDS ORDERED: POTASSIUM CHLORIDE 20MEQ/100ML 100 ML IV ONE (08:00)
[2020-10-12] MEDS: CEFTRIAXONE 1 GM in SODIUM CHLORIDE 0.9% 50ML 50 ML IV SCH ×2 (08:30→20:08)
[2020-10-12] MEDS: METOPROLOL SUCCINATE 25 MG TAB XL PO SCH ×2 (09:00→17:15)
[2020-10-12] MEDS: ONDANSETRON HCL INJ 2MG/ML 2ML 2 MG/ML VIAL IV PRN ×2 (09:03→19:35)
[2020-10-12 10:45] LABS: BAND NEUTROPHILS % (MANUAL) 6 %; LYMPHOCYTES % (MANUAL) 4 % (19-48); MONOCYTES % (MANUAL) 1 % (3.4-9.0); NEUTROPHILS % (MANUAL) 89 % (40-74); RBC MORPHOLOGY COMMENT NORMAL
[2020-10-12] MEDS ORDERED: GLUCAGON FOR INJ 1 MG VIAL ONE (13:05)
[2020-10-12] MEDS ORDERED: LIDOCAINE HCL 2% LOCAL INJ 5 ML SDV VIAL INJ ONE (13:05)
[2020-10-12] MEDS ORDERED: HYOSCYAMINE SULFATE 0.5 MG/ML INJ ONE (13:05)
[2020-10-12] MEDS ORDERED: PROPOFOL IV EMULSION 10 MG/ML 20 ML VIAL ONE (13:05)
[2020-10-12] MEDS: POTASSIUM CHLORIDE 10MEQ EA PO SCH (17:15)
[2020-10-12] MEDS ORDERED: ATORVASTATIN 20 MG TAB ONE (19:23)
[2020-10-12] MEDS: SERTRALINE HCL 50 MG TAB PO SCH (20:08)
[2020-10-12] MEDS: METRONIDAZOLE 500MG/NS 100ML 100 ML IV SCH (21:28)
[2020-10-13] VITALS (8 sets, daily range): BP systolic 97–118; BP diastolic 58–66
[2020-10-13] MEDS: MORPHINE SULFATE INJ 2 MG/ML SYR IV PRN ×4 (04:25→21:00)
[2020-10-13] MEDS: ONDANSETRON HCL INJ 2MG/ML 2ML 2 MG/ML VIAL IV PRN ×4 (04:25→21:00)
[2020-10-13 04:51] LABS: BASOPHILS # (AUTO) 0.1 (0.0-0.1); BASOPHILS % 0.6 % (0.0-1.0); HEMATOCRIT 32.5 % (34.2-44.1); HEMOGLOBIN 11.2 g/dL (12.0-16.0); LYMPHOCYTES # (AUTO) 1.8 (1.0-3.2); LYMPHOCYTES % 21.7 % (18.0-39.1); MEAN CORPUSCULAR HEMOGLOBIN 30.2 pg (28-32); MEAN CORPUSCULAR HGB CONC 34.5 g/dL (31-35); MEAN CORPUSCULAR VOLUME 87.6 fL (81-99); MONOCYTES # (AUTO) 0.3 (0.2-0.8); MONOCYTES % 3.1 % (4.4-11.3); NEUTROPHILS # (AUTO) 6.2 (2.1-6.9); NEUTROPHILS % 73.5 % (38.7-80.0); PLATELET COUNT 140 x10e3/uL (140-360); RED BLOOD COUNT 3.71 x10e6/uL (3.6-5.1); RED CELL DISTRIBUTION WIDTH 14.4 % (11.7-14.4)
[2020-10-13] MEDS: METRONIDAZOLE 500MG/NS 100ML 100 ML IV SCH ×3 (05:08→22:20)
[2020-10-13 05:11] LABS: ANION GAP 12.2 mmol/L (8-16); CALCIUM 7.4 mg/dL (8.4-10.2); CREATININE, SERUM 0.68 mg/dL (0.57-1.11); POTASSIUM 3.2 mmol/L (3.5-5.1)
[2020-10-13] MEDS: OMEPRAZOLE 20 MG CAP PO SCH ×2 (08:38→17:00)
[2020-10-13] MEDS: POTASSIUM CHLORIDE 10MEQ EA PO SCH (08:46)
[2020-10-13] MEDS: METOPROLOL SUCCINATE 25 MG TAB XL PO SCH (08:46)
[2020-10-13] MEDS: CEFTRIAXONE 1 GM in SODIUM CHLORIDE 0.9% 50ML 50 ML IV SCH ×2 (09:00→21:01)
[2020-10-13 09:14] LABS: BAND NEUTROPHILS % (MANUAL) 2 %; LYMPHOCYTES % (MANUAL) 1 % (19-48); METAMYELOCYTES % (MANUAL) 3 % (0-0); MYELOCYTES % (MANUAL) 1 % (0-0); NEUTROPHILS % (MANUAL) 93 % (40-74)
[2020-10-13 09:17] LABS: RBC MORPHOLOGY COMMENT NORMAL
[2020-10-13 09:18] LABS: PLATELET ESTIMATE ADEQUATE; PLATELET MORPHOLOGY COMMENT NORMAL
[2020-10-13] MEDS ORDERED: POTASSIUM CHLORIDE 20 MEQ TAB CR PO ONE (13:30)
[2020-10-13] MEDS ORDERED: SODIUM CHLORIDE 0.9% 1000ML 1,000 ML ONE (20:50)
[2020-10-13] MEDS: SODIUM CHLORIDE 0.9% 1000ML 1,000 ML IV SCH (21:01)
[2020-10-13] MEDS: SERTRALINE HCL 50 MG TAB PO SCH (21:01)
[2020-10-14] VITALS (7 sets, daily range): BP systolic 99–118; BP diastolic 57–70
[2020-10-14 00:15] LABS: % IRON SATURATION 8 % (15-50); IRON 18 ug/dL (50-170); TOTAL IRON BINDING CAPACITY 214 ug/dL (261-478); TRANSFERRIN 153 mg/dL (180-382)
[2020-10-14 00:36] LABS: FERRITIN > 2000.00 ng/mL (4.63-204.00)
[2020-10-14] MEDS: MORPHINE SULFATE INJ 2 MG/ML SYR IV PRN ×3 (04:17→21:27)
[2020-10-14] MEDS: ONDANSETRON HCL INJ 2MG/ML 2ML 2 MG/ML VIAL IV PRN ×3 (04:17→21:27)
[2020-10-14 04:50] LABS: BASOPHILS # (AUTO) 0.1 (0.0-0.1); BASOPHILS % 0.6 % (0.0-1.0); HEMATOCRIT 32.8 % (34.2-44.1); HEMOGLOBIN 11.5 g/dL (12.0-16.0); LYMPHOCYTES # (AUTO) 3.3 (1.0-3.2); LYMPHOCYTES % 31.5 % (18.0-39.1); MEAN CORPUSCULAR HEMOGLOBIN 30.2 pg (28-32); MEAN CORPUSCULAR HGB CONC 35.1 g/dL (31-35); MEAN CORPUSCULAR VOLUME 86.1 fL (81-99); MONOCYTES # (AUTO) 0.3 (0.2-0.8); MONOCYTES % 3.3 % (4.4-11.3); NEUTROPHILS # (AUTO) 6.5 (2.1-6.9); NEUTROPHILS % 62.9 % (38.7-80.0); PLATELET COUNT 143 x10e3/uL (140-360); RED BLOOD COUNT 3.81 x10e6/uL (3.6-5.1); RED CELL DISTRIBUTION WIDTH 14.6 % (11.7-14.4)
[2020-10-14 05:21] LABS: CALCIUM 7.4 mg/dL (8.4-10.2); CREATININE, SERUM 0.71 mg/dL (0.57-1.11)
[2020-10-14] MEDS: METRONIDAZOLE 500MG/NS 100ML 100 ML IV SCH ×3 (05:24→21:47)
[2020-10-14 07:34] LABS: BAND NEUTROPHILS % (MANUAL) 2 %; LYMPHOCYTES % (MANUAL) 3 % (19-48); MONOCYTES % (MANUAL) 3 % (3.4-9.0); NEUTROPHILS % (MANUAL) 90 % (40-74); PLATELET ESTIMATE ADEQUATE; PLATELET MORPHOLOGY COMMENT NORMAL; RBC MORPHOLOGY COMMENT NORMAL
[2020-10-14] MEDS: CEFTRIAXONE 1 GM in SODIUM CHLORIDE 0.9% 50ML 50 ML IV SCH ×2 (08:15→21:18)
[2020-10-14] MEDS: OMEPRAZOLE 20 MG CAP PO SCH ×2 (08:15→17:30)
[2020-10-14] MEDS: POTASSIUM CHLORIDE 10MEQ EA PO SCH (08:15)
[2020-10-14] MEDS: METOPROLOL SUCCINATE 25 MG TAB XL PO SCH (09:00)
[2020-10-14] MEDS ORDERED: POTASSIUM CHLORIDE 10MEQ EA PO ONE (12:30)
[2020-10-14] MEDS: SODIUM FERRIC GLUCONATE COMPLX 125 MG in SODIUM CHLORIDE 0.9% 100 ML 100 ML IV SCH (15:17)
[2020-10-14] MEDS: SERTRALINE HCL 50 MG TAB PO SCH (21:18)
[2020-10-15] VITALS: BP 121/68
[2020-10-15 04:00] VITALS: BP 116/71
[2020-10-15 04:51] LABS: BASOPHILS # (AUTO) 0.1 (0.0-0.1); BASOPHILS % 0.4 % (0.0-1.0); EOSINOPHILS % 0.1 % (0.0-6.0); HEMOGLOBIN 11.7 g/dL (12.0-16.0); LYMPHOCYTES # (AUTO) 4.1 (1.0-3.2); LYMPHOCYTES % 33.1 % (18.0-39.1); MEAN CORPUSCULAR HEMOGLOBIN 29.8 pg (28-32); MEAN CORPUSCULAR HGB CONC 34.4 g/dL (31-35); MEAN CORPUSCULAR VOLUME 86.7 fL (81-99); MONOCYTES # (AUTO) 0.4 (0.2-0.8); MONOCYTES % 3.6 % (4.4-11.3); NEUTROPHILS # (AUTO) 7.6 (2.1-6.9); NEUTROPHILS % 61.4 % (38.7-80.0); PLATELET COUNT 180 x10e3/uL (140-360); RED BLOOD COUNT 3.92 x10e6/uL (3.6-5.1)
[2020-10-15 05:21] LABS: ANION GAP 14.2 mmol/L (8-16); CALCIUM 7.9 mg/dL (8.4-10.2); CREATININE, SERUM 0.69 mg/dL (0.57-1.11); POTASSIUM 3.2 mmol/L (3.5-5.1)
[2020-10-15] MEDS: METRONIDAZOLE 500MG/NS 100ML 100 ML IV SCH ×2 (05:52→14:10)
[2020-10-15] MEDS: MORPHINE SULFATE INJ 2 MG/ML SYR IV PRN (06:00)
[2020-10-15] MEDS: ONDANSETRON HCL INJ 2MG/ML 2ML 2 MG/ML VIAL IV PRN (06:00)
[2020-10-15 07:36] VITALS: BP 122/72
[2020-10-15] MEDS: OMEPRAZOLE 20 MG CAP PO SCH ×2 (08:28→16:29)
[2020-10-15 08:36] VITALS: BP 122/72
[2020-10-15] MEDS ORDERED: IRON SUCROSE 100 MG in SODIUM CHLORIDE 0.9% 100 ML 100 ML IV SCH (09:00)
[2020-10-15 09:05] LABS: BAND NEUTROPHILS % (MANUAL) 1 %; BLAST CELLS % MANUAL 2; LYMPHOCYTES % (MANUAL) 10 % (19-48); METAMYELOCYTES % (MANUAL) 1 % (0-0); NEUTROPHILS % (MANUAL) 79 % (40-74); PLATELET ESTIMATE ADEQUATE; PLATELET MORPHOLOGY COMMENT FEW LARGE; SMUDGE CELLS FEW
[2020-10-15] MEDS: CEFTRIAXONE 1 GM in SODIUM CHLORIDE 0.9% 50ML 50 ML IV SCH (11:07)
[2020-10-15] MEDS: POTASSIUM CHLORIDE 10MEQ EA PO SCH (11:07)
[2020-10-15] MEDS: METOPROLOL SUCCINATE 25 MG TAB XL PO SCH (11:08)
[2020-10-15 12:00] VITALS: BP 119/69
[2020-10-15] MEDS ORDERED: CALCIUM GLUCONATE 10% INJ 9.3 MEQ in SODIUM CHLORIDE 0.9% 100 ML 100 ML IV ONE (12:15)
[2020-10-15] MEDS: SODIUM FERRIC GLUCONATE COMPLX 125 MG in SODIUM CHLORIDE 0.9% 100 ML 100 ML IV SCH (14:10)
[2020-10-15] MEDS: POTASSIUM CHLORIDE 20 MEQ TAB CR PO SCH ×2 (14:10→16:29)
[2020-10-15 15:50] VITALS: BP 129/75
== END 2020-10-15 18:08 | disposition home or self-care (01) | DRG 378 ==
LOC: ER 13:56 → ERHOLD 16:42 → MED/SURG2 17:25
PROVIDERS: ADMIT Internal Medicine; ATTEND Internal Medicine
PROC: 0DBG8ZX Excision of Left Large Intestine, Via Natural or Artificial Opening Endoscopic, Diagnostic (ICD-10-PCS; principal; 2020-10-12 13:58)
DX: K57.31 Diverticulosis of large intestine without perforation or abscess with bleeding (principal); M62.82 Rhabdomyolysis; N39.0 Urinary tract infection, site not specified; E87.1 Hypo-osmolality and hyponatremia; K51.50 Left sided colitis without complications; E87.2 Acidosis; I25.10 Atherosclerotic heart disease of native coronary artery without angina pectoris; I11.9 Hypertensive heart disease without heart failure; D69.6 Thrombocytopenia, unspecified; Z90.49 Acquired absence of other specified parts of digestive tract; K64.8 Other hemorrhoids; K62.89 Other specified diseases of anus and rectum; D50.0 Iron deficiency anemia secondary to blood loss (chronic); E87.6 Hypokalemia; B96.1 Klebsiella pneumoniae [K. pneumoniae] as the cause of diseases classified elsewhere; Z86.010 Personal history of colon polyps; Z86.718 Personal history of other venous thrombosis and embolism; Z85.3 Personal history of malignant neoplasm of breast; Z95.1 Presence of aortocoronary bypass graft; Z86.73 Personal history of transient ischemic attack (TIA), and cerebral infarction without residual deficits; Z20.822 Contact with and (suspected) exposure to COVID-19
CPT/HCPCS: 36415; 45380; 74177; 80048; 80053; 81001; 82150; 82550; 82553; 82607; 82728; 82746; 83540; 83690; 83735; 84466; 84484; 85025; 85045; 85610; 85730; 87040; 87086; 87186; 88305; 93005; 99284; J0500; J0610; J0696; J1610; J1756; J1980; J2001; J2270; J2405; J2916; J3480; J7030; Q9967; U0002

== ENCOUNTER 2021-06-02 17:23 | Emergency (ER) | payer OTHER ==
[~2021-06-02] VITALS: Ht 157.5 cm; Wt 61.2 kg
[2021-06-02] MEDS ORDERED: DICYCLOMINE HCL 20 MG TAB PO ONE (18:15)
[2021-06-02] MEDS ORDERED: SODIUM CHLORIDE 0.9% 1000ML 1,000 ML IV SCH (18:15)
[2021-06-02] MEDS ORDERED: IOPAMIDOL 370 MG/ML 200 ML INFUS..BTL INJ ONE (18:26)
[2021-06-02] MEDS ORDERED: SODIUM CHLORIDE 0.9% 50ML 50 ML ONE (18:26)
[2021-06-02] MEDS ORDERED: KETOROLAC TROMETHAMINE 30 MG/ML VIAL IV STA (18:44)
[2021-06-02] MEDS ORDERED: SODIUM CHLORIDE 0.9% 1000ML 1,000 ML ONE (18:57)
[2021-06-02] MEDS ORDERED: DICYCLOMINE HCL 10 MG CAP ONE (18:57)
[2021-06-02] MEDS ORDERED: AMOX TR-K CLV1 EAC2 PO (19:52)
[2021-06-02] MEDS ORDERED: DICYCLOMINE HCL20 MG PO (19:53)
== END 2021-06-02 20:06 | disposition home or self-care (01) ==
LOC: FSED 17:46
DX: R10.30 Lower abdominal pain, unspecified (principal); I10 Essential (primary) hypertension; E78.5 Hyperlipidemia, unspecified; F32.A Depression, unspecified; Z86.79 Personal history of other diseases of the circulatory system; Z86.73 Personal history of transient ischemic attack (TIA), and cerebral infarction without residual deficits; Z95.1 Presence of aortocoronary bypass graft
CPT/HCPCS: 74177; 80076; 81003; 83880; 85025; 99283; J1885; J7030; Q9967

== ENCOUNTER 2021-07-06 09:49 | Emergency (ER) | payer OTHER ==
[~2021-07-06] VITALS: Ht 157.5 cm; Wt 60.8 kg
[~2021-07-06 09:49] MED LIST changes: +AMOX TR-K CLV1 EAC2 PO
[2021-07-06] MEDS ORDERED: IBUPROFEN200 MG PO (10:17)
[2021-07-06] MEDS ORDERED: DOXYCYCLINE HY100 MG PO (10:17)
== END 2021-07-06 10:52 | disposition home or self-care (01) ==
LOC: FSED 10:16
DX: R59.1 Generalized enlarged lymph nodes (principal); I10 Essential (primary) hypertension; I25.10 Atherosclerotic heart disease of native coronary artery without angina pectoris; Z85.3 Personal history of malignant neoplasm of breast; Z86.73 Personal history of transient ischemic attack (TIA), and cerebral infarction without residual deficits; Z95.1 Presence of aortocoronary bypass graft
CPT/HCPCS: 99282

== ENCOUNTER 2021-09-01 09:44 | Emergency (ER) | payer OTHER ==
[~2021-09-01] VITALS: Ht 157.5 cm; Wt 59.4 kg
[~2021-09-01 09:44] MED LIST changes: +DOXYCYCLINE HY100 MG PO; +IBUPROFEN200 MG PO
[2021-09-01] MEDS ORDERED: PAXLOVID 150-11 EACH PO (11:20)
[2021-09-01] MEDS ORDERED: ACETAMINOPHEN500 MG PO (11:20)
[2021-09-01] MEDS ORDERED: IBUPROFEN200 MG PO (11:20)
[2021-09-01] MEDS ORDERED: DICYCLOMINE HCL10 MG PO (12:26)
== END 2021-09-01 12:20 | disposition home or self-care (01) ==
LOC: FSED 10:00
DX: R05.9 Cough, unspecified (principal); U07.1 COVID-19; R53.81 Other malaise; R53.83 Other fatigue; I10 Essential (primary) hypertension; I25.10 Atherosclerotic heart disease of native coronary artery without angina pectoris; Z86.73 Personal history of transient ischemic attack (TIA), and cerebral infarction without residual deficits; Z86.718 Personal history of other venous thrombosis and embolism
CPT/HCPCS: 0223U; 36415; 71046; 99283

== ENCOUNTER 2021-11-07 22:50 | Inpatient (IN) | payer MEDICARE, OTHER ==
[~2021-11-07] VITALS: Ht 157.5 cm; Wt 62.1 kg
[~2021-11-07 22:50] MED LIST changes: +ACETAMINOPHEN500 MG PO; +PAXLOVID 150-11 EACH PO
[2021-11-07] MEDS ORDERED: ASPIRIN 81 MG CHEW TAB PO ONE (23:30)
[2021-11-07] MEDS: ONDANSETRON HCL INJ 2MG/ML 2ML 2 MG/ML VIAL IV PRN (23:42)
[2021-11-07] MEDS ORDERED: ONDANSETRON HCL INJ 2MG/ML 2ML 2 MG/ML VIAL ONE (23:55)
[2021-11-07] MEDS ORDERED: ASPIRIN 81 MG CHEW TAB ONE (23:55)
[2021-11-08] VITALS (8 sets, daily range): BP systolic 94–134; BP diastolic 56–79
[2021-11-08] MEDS ORDERED: SODIUM CHLORIDE 0.9% 500ML 500 ML ONE (00:06)
[2021-11-08] MEDS ORDERED: SODIUM CHLORIDE 0.9% 1000ML 500 ML IV ONE (00:30)
[2021-11-08] MEDS ORDERED: PENTOXIFYLLINE400 MG PO (02:42)
[2021-11-08 07:11] LABS: CREATINE KINASE 66 IU/L (29-168)
[2021-11-08] MEDS ORDERED: TRAMADOL HCL 50 MG TAB PO PRN (08:15)
[2021-11-08] MEDS ORDERED: MECLIZINE HCL 12.5 MG TAB PO PRN (08:15)
[2021-11-08] MEDS ORDERED: TOPIRAMATE 25 MG TAB PO PRN (08:15)
[2021-11-08] MEDS ORDERED: ACETAMINOPHEN 325 MG TAB PO PRN (08:15)
[2021-11-08 08:42] LABS: FREE T4 (FREE THYROXINE) 0.83 ng/dL (0.8-1.8); THYROID STIMULATING HORMONE 1.616 uIU/mL (0.350-4.940)
[2021-11-08] MEDS ORDERED: ACETAMIN/BUTALBITAL/CAFFEINE TAB PO PRN (08:45)
[2021-11-08] MEDS: SODIUM CHLORIDE 0.9% 1000ML 1,000 ML IV SCH ×2 (09:00→20:54)
[2021-11-08] MEDS: POTASSIUM CHLORIDE 10MEQ EA PO SCH (09:49)
[2021-11-08] MEDS: PANTOPRAZOLE SOD 40 MG TABEC PO SCH (09:49)
[2021-11-08] MEDS: PENTOXIFYLLINE 400 MG TAB CR PO SCH ×2 (09:49→17:30)
[2021-11-08] MEDS: DICYCLOMINE HCL 10 MG CAP PO SCH (09:49)
[2021-11-08 16:14] LABS: CREATINE KINASE 87 IU/L (29-168)
[2021-11-08] MEDS: FAMOTIDINE 20 MG TAB PO SCH (17:30)
[2021-11-08] MEDS: ATORVASTATIN 20 MG TAB PO SCH (20:44)
[2021-11-08] MEDS: SERTRALINE HCL 50 MG TAB PO SCH (20:47)
[2021-11-09] VITALS (9 sets, daily range): BP systolic 118–167; BP diastolic 55–78
[2021-11-09 05:34] LABS: BASOPHILS % 0.4 % (0.0-1.0); EOSINOPHILS # (AUTO) 0.1 (0.0-0.4); EOSINOPHILS % 1.2 % (0.0-6.0); HEMATOCRIT 37.7 % (34.2-44.1); LYMPHOCYTES # (AUTO) 2.1 (1.0-3.2); LYMPHOCYTES % 41.2 % (18.0-39.1); MEAN CORPUSCULAR HEMOGLOBIN 30.8 pg (28-32); MEAN CORPUSCULAR HGB CONC 34.5 g/dL (31-35); MEAN CORPUSCULAR VOLUME 89.3 fL (81-99); MONOCYTES # (AUTO) 0.3 (0.2-0.8); MONOCYTES % 6.4 % (4.4-11.3); NEUTROPHILS # (AUTO) 2.5 (2.1-6.9); NEUTROPHILS % 50.4 % (38.7-80.0); PLATELET COUNT 163 x10e3/uL (140-360); RED BLOOD COUNT 4.22 x10e6/uL (3.6-5.1); RED CELL DISTRIBUTION WIDTH 13.2 % (11.7-14.4)
[2021-11-09 05:54] LABS: ALBUMIN 3.2 g/dL (3.5-5.0); ALBUMIN/GLOBULIN RATIO 0.9 (0.8-2.0); ANION GAP 10.9 mmol/L (8-16); CALCIUM 8.1 mg/dL (8.4-10.2); CHOL/HDL RATIO 4.2 (3.0-3.6); CREATININE, SERUM 0.78 mg/dL (0.57-1.11); MAGNESIUM 1.8 MG/DL (1.3-2.1); POTASSIUM 3.9 mmol/L (3.5-5.1)
[2021-11-09 06:52] LABS: CREATINE KINASE MB 1.8 ng/mL (0-5.0)
[2021-11-09] MEDS: PENTOXIFYLLINE 400 MG TAB CR PO SCH ×2 (08:58→16:35)
[2021-11-09] MEDS: ASPIRIN 81 MG ENTERIC COATED PO SCH (08:58)
[2021-11-09] MEDS: FAMOTIDINE 20 MG TAB PO SCH ×2 (08:59→16:35)
[2021-11-09] MEDS: DICYCLOMINE HCL 10 MG CAP PO SCH (08:59)
[2021-11-09] MEDS: ONDANSETRON HCL INJ 2MG/ML 2ML 2 MG/ML VIAL IV PRN (08:59)
[2021-11-09] MEDS: POTASSIUM CHLORIDE 10MEQ EA PO SCH (08:59)
[2021-11-09] MEDS: PANTOPRAZOLE SOD 40 MG TABEC PO SCH (09:02)
[2021-11-09] MEDS: ATORVASTATIN 20 MG TAB PO SCH (20:36)
[2021-11-09] MEDS: SERTRALINE HCL 50 MG TAB PO SCH (20:39)
[2021-11-10] VITALS (8 sets, daily range): BP systolic 113–140; BP diastolic 63–78
[2021-11-10 05:47] LABS: BASOPHILS % 0.3 % (0.0-1.0); EOSINOPHILS % 0.3 % (0.0-6.0); HEMATOCRIT 37.4 % (34.2-44.1); LYMPHOCYTES # (AUTO) 1.6 (1.0-3.2); LYMPHOCYTES % 25.2 % (18.0-39.1); MEAN CORPUSCULAR HEMOGLOBIN 30.9 pg (28-32); MEAN CORPUSCULAR HGB CONC 34.8 g/dL (31-35); MEAN CORPUSCULAR VOLUME 88.8 fL (81-99); MONOCYTES # (AUTO) 0.4 (0.2-0.8); MONOCYTES % 6.1 % (4.4-11.3); NEUTROPHILS # (AUTO) 4.3 (2.1-6.9); NEUTROPHILS % 67.8 % (38.7-80.0); PLATELET COUNT 164 x10e3/uL (140-360); RED BLOOD COUNT 4.21 x10e6/uL (3.6-5.1); RED CELL DISTRIBUTION WIDTH 13.1 % (11.7-14.4)
[2021-11-10 06:17] LABS: ANION GAP 11.8 mmol/L (8-16); CALCIUM 8.5 mg/dL (8.4-10.2); CREATININE, SERUM 0.68 mg/dL (0.57-1.11); POTASSIUM 3.8 mmol/L (3.5-5.1)
[2021-11-10] MEDS ORDERED: ONDANSETRON HCL 4 MG ORAL DISINTEGRATING TAB PO PRN (11:15)
[2021-11-10] MEDS: FAMOTIDINE 20 MG TAB PO SCH (11:23)
[2021-11-10] MEDS: DICYCLOMINE HCL 10 MG CAP PO SCH (11:23)
[2021-11-10] MEDS: ASPIRIN 81 MG ENTERIC COATED PO SCH (11:23)
[2021-11-10] MEDS: PANTOPRAZOLE SOD 40 MG TABEC PO SCH (11:23)
[2021-11-10] MEDS: PENTOXIFYLLINE 400 MG TAB CR PO SCH (11:24)
[2021-11-10] MEDS: POTASSIUM CHLORIDE 10MEQ EA PO SCH (11:24)
[2021-11-10] MEDS ORDERED: MECLIZINE HCL12.5 MG PO (12:29)
== END 2021-11-10 17:01 | disposition home or self-care (01) | DRG 149 ==
LOC: FSED 23:00 → INTOOBSV 23:29 → ERHOLD 23:29 → MED/SURG2 11-08 01:28 → OBSVTOIN 11-09 15:38
PROVIDERS: ADMIT Internal Medicine; ATTEND Internal Medicine
DX: R42 Dizziness and giddiness (principal); I69.351 Hemiplegia and hemiparesis following cerebral infarction affecting right dominant side; I44.0 Atrioventricular block, first degree; I45.10 Unspecified right bundle-branch block; R00.1 Bradycardia, unspecified; E86.0 Dehydration; Z74.09 Other reduced mobility; I10 Essential (primary) hypertension; I95.9 Hypotension, unspecified; K57.90 Diverticulosis of intestine, part unspecified, without perforation or abscess without bleeding; E78.5 Hyperlipidemia, unspecified; Z86.79 Personal history of other diseases of the circulatory system; G43.919 Migraine, unspecified, intractable, without status migrainosus; F41.9 Anxiety disorder, unspecified; F32.A Depression, unspecified; Z85.3 Personal history of malignant neoplasm of breast; G89.29 Other chronic pain; K58.0 Irritable bowel syndrome with diarrhea; Q24.8 Other specified congenital malformations of heart; I25.10 Atherosclerotic heart disease of native coronary artery without angina pectoris; Z95.1 Presence of aortocoronary bypass graft; Z90.12 Acquired absence of left breast and nipple; Z20.822 Contact with and (suspected) exposure to COVID-19
CPT/HCPCS: 36415; 70450; 80048; 80053; 80061; 82550; 82553; 83036; 83735; 84100; 84439; 84443; 84484; 85025; 92523; 93005; 93306; 93880; 94799; 96374; 99284; G0378; J2405; J7030; J7040

== ENCOUNTER 2022-03-14 10:02 | Emergency (ER) | payer MEDICARE ==
[~2022-03-14] VITALS: Ht 157.5 cm; Wt 62.1 kg
[2022-03-14] MEDS ORDERED: SODIUM CHLORIDE 0.9% 1000ML 1,000 ML IV STA (10:18)
[2022-03-14] MEDS ORDERED: ONDANSETRON HCL INJ 2MG/ML 2ML 2 MG/ML VIAL IV STA (10:18)
[2022-03-14] MEDS ORDERED: Morphine 4mg INJECTION 4 MG/ML INJ IV STA (10:18)
[2022-03-14 10:39] LABS: BASOPHILS % 0.4 % (0.0-1.0); EOSINOPHILS % 0.8 % (0.0-6.0); HEMATOCRIT 47.2 % (34.2-44.1); HEMOGLOBIN 15.5 g/dL (12.0-16.0); LYMPHOCYTES # (AUTO) 1.5 (1.0-3.2); LYMPHOCYTES % 28.7 % (18.0-39.1); MEAN CORPUSCULAR HEMOGLOBIN 30.9 pg (28-32); MEAN CORPUSCULAR HGB CONC 32.8 g/dL (31-35); MEAN CORPUSCULAR VOLUME 94.2 fL (81-99); MONOCYTES # (AUTO) 0.2 (0.2-0.8); NEUTROPHILS # (AUTO) 3.5 (2.1-6.9); NEUTROPHILS % 65.9 % (38.7-80.0); PLATELET COUNT 203 x10e3/uL (140-360); RED BLOOD COUNT 5.01 x10e6/uL (3.6-5.1); RED CELL DISTRIBUTION WIDTH 12.8 % (11.7-14.4)
[2022-03-14 10:49] LABS: INR 1.08; PROTHROMBIN TIME 14.2 seconds (11.9-14.5)
[2022-03-14 10:52] LABS: PARTIAL THROMBOPLASTIN TIME 29.9 seconds (23.8-35.5)
[2022-03-14 11:02] LABS: ALBUMIN 3.8 g/dL (3.5-5.0); ALBUMIN/GLOBULIN RATIO 0.9 (0.8-2.0); ANION GAP 16.9 mmol/L (8-16); CALCIUM 9.5 mg/dL (8.4-10.2); CREATININE, SERUM 0.79 mg/dL (0.57-1.11); MAGNESIUM 1.8 MG/DL (1.3-2.1); POTASSIUM 3.9 mmol/L (3.5-5.1)
[2022-03-14 11:22] LABS: CREATINE KINASE MB 1.8 ng/mL (0-5.0)
[2022-03-14] MEDS ORDERED: IOPAMIDOL 370 MG/ML 100 ML INFUS..BTL INJ ONE (11:27)
[2022-03-14 11:30] LABS: CLARITY,URINE CLOUDY (CLEAR); COLOR,URINE YELLOW (YELLOW); KETONES,URINE NEGATIVE (NEGATIVE); LEUKOCYTE ESTERASE ,URINE SMALL (NEGATIVE); NITRITE,URINE NEGATIVE (NEGATIVE); PROTEIN,URINE DIPSTICK NEGATIVE (NEGATIVE); URINE UROBILINOGEN 0.2 mg/dL (0.2 - 1)
[2022-03-14 11:42] LABS: BACTERIA,URINE MANY /HPF; EPITHELIAL CELLS,URINE MODERATE /LPF; RBC,URINE 0-5 /HPF (0-5); WBC,URINE (MAN) >50 /HPF (0-5)
[2022-03-14] MEDS ORDERED: SODIUM CHLORIDE 0.9% 500ML 500 ML IV ONE (12:15)
[2022-03-14] MEDS ORDERED: DICYCLOMINE HCL20 MG PO (12:49)
[2022-03-14 13:43] VITALS: BP 108/75
== END 2022-03-14 13:13 | disposition home or self-care (01) ==
LOC: ER 10:07
DX: R10.84 Generalized abdominal pain (principal); N39.0 Urinary tract infection, site not specified; I10 Essential (primary) hypertension; I25.10 Atherosclerotic heart disease of native coronary artery without angina pectoris; M54.9 Dorsalgia, unspecified; G89.29 Other chronic pain; Z85.3 Personal history of malignant neoplasm of breast; Z86.73 Personal history of transient ischemic attack (TIA), and cerebral infarction without residual deficits
CPT/HCPCS: 36415; 74177; 80053; 81001; 82550; 82553; 83690; 83735; 84484; 85025; 85610; 85730; 87086; 99284; C9113; J2270; J2405; J2543; J7030; J7040; Q9967

== ENCOUNTER → 2022-03-27 | Outpatient (CLI) | payer MEDICARE ==
[~2022-03-27] MED LIST changes: +CELEBREX200 MG PO; +ONDANSETRON ODT8 MG PO; +TIZANIDINE HCL4 M1 PO
== END ==
LOC: MAMMO 14:17
PROVIDERS: ATTEND Family Medicine
DX: Z12.31 Encounter for screening mammogram for malignant neoplasm of breast (principal)
CPT/HCPCS: 77067

== ENCOUNTER → 2022-03-31 | Day surgery (SDC) | payer MEDICARE ==
[2022-03-29 14:20] LABS: BASOPHILS % 0.4 % (0.0-1.0); EOSINOPHILS # (AUTO) 0.1 (0.0-0.4); EOSINOPHILS % 1.3 % (0.0-6.0); HEMATOCRIT 48.9 % (34.2-44.1); HEMOGLOBIN 15.5 g/dL (12.0-16.0); LYMPHOCYTES # (AUTO) 2.4 (1.0-3.2); LYMPHOCYTES % 43.5 % (18.0-39.1); MEAN CORPUSCULAR HEMOGLOBIN 30.2 pg (28-32); MEAN CORPUSCULAR HGB CONC 31.7 g/dL (31-35); MEAN CORPUSCULAR VOLUME 95.3 fL (81-99); MONOCYTES # (AUTO) 0.3 (0.2-0.8); MONOCYTES % 6.2 % (4.4-11.3); NEUTROPHILS # (AUTO) 2.6 (2.1-6.9); NEUTROPHILS % 48.4 % (38.7-80.0); PLATELET COUNT 206 x10e3/uL (140-360); RED BLOOD COUNT 5.13 x10e6/uL (3.6-5.1); RED CELL DISTRIBUTION WIDTH 12.9 % (11.7-14.4)
[~2022-03-31] MED LIST changes: +HYOSCYAMINE SULFATE 0.5 MG/ML INJ ONE; +LIDOCAINE HCL 2% LOCAL INJ 5 ML SDV VIAL INJ ONE; +METOCLOPRAMIDE HCL 10 MG/2ML VIAL ONE; +PROPOFOL IV EMULSION 0 ML IV ONE; +PROPOFOL IV EMULSION 10 MG/ML 20 ML VIAL ONE
[2022-03-31 09:05] VITALS: BP 113/68
== END | disposition home or self-care (01) ==
LOC: OR 05:36
PROVIDERS: ATTEND Internal Medicine Gastroenterology
DX: K29.70 Gastritis, unspecified, without bleeding (principal); K63.5 Polyp of colon; K52.9 Noninfective gastroenteritis and colitis, unspecified; K57.92 Diverticulitis of intestine, part unspecified, without perforation or abscess without bleeding; K44.9 Diaphragmatic hernia without obstruction or gangrene; K62.89 Other specified diseases of anus and rectum; K64.8 Other hemorrhoids; I10 Essential (primary) hypertension; K21.9 Gastro-esophageal reflux disease without esophagitis; E78.00 Pure hypercholesterolemia, unspecified; R42 Dizziness and giddiness; R53.1 Weakness; R06.02 Shortness of breath; Z88.8 Allergy status to other drugs, medicaments and biological substances; Z01.810 Encounter for preprocedural cardiovascular examination; Z01.812 Encounter for preprocedural laboratory examination; Z79.82 Long term (current) use of aspirin; Z79.899 Other long term (current) drug therapy; Z85.3 Personal history of malignant neoplasm of breast; Z92.3 Personal history of irradiation; Z86.73 Personal history of transient ischemic attack (TIA), and cerebral infarction without residual deficits; Z86.16 Personal history of COVID-19; Z80.0 Family history of malignant neoplasm of digestive organs
CPT/HCPCS: 36415; 43239; 45380; 83630; 83993; 85025; 87045; 87177; 87324; 87328; 87449; 93005; C9113; J1980; J2001; J2704; J2765; 45378

== ENCOUNTER 2022-04-06 10:10 | Observation (INO) | payer MEDICARE ==
[~2022-04-06] VITALS: Ht 157.5 cm; Wt 62.1 kg
[~2022-04-06 10:10] MED LIST changes: -HYOSCYAMINE SULFATE 0.5 MG/ML INJ ONE; -LIDOCAINE HCL 2% LOCAL INJ 5 ML SDV VIAL INJ ONE; -METOCLOPRAMIDE HCL 10 MG/2ML VIAL ONE; -PROPOFOL IV EMULSION 0 ML IV ONE; -PROPOFOL IV EMULSION 10 MG/ML 20 ML VIAL ONE
[2022-04-06 10:50] LABS: BASOPHILS % 0.3 % (0.0-1.0); EOSINOPHILS # (AUTO) 0.1 (0.0-0.4); EOSINOPHILS % 1.2 % (0.0-6.0); HEMATOCRIT 48.7 % (34.2-44.1); HEMOGLOBIN 15.3 g/dL (12.0-16.0); LYMPHOCYTES # (AUTO) 1.5 (1.0-3.2); LYMPHOCYTES % 25.9 % (18.0-39.1); MEAN CORPUSCULAR HEMOGLOBIN 30.4 pg (28-32); MEAN CORPUSCULAR HGB CONC 31.4 g/dL (31-35); MEAN CORPUSCULAR VOLUME 96.8 fL (81-99); MONOCYTES # (AUTO) 0.3 (0.2-0.8); MONOCYTES % 5.4 % (4.4-11.3); NEUTROPHILS # (AUTO) 3.9 (2.1-6.9); NEUTROPHILS % 66.9 % (38.7-80.0); PLATELET COUNT 184 x10e3/uL (140-360); RED BLOOD COUNT 5.03 x10e6/uL (3.6-5.1); RED CELL DISTRIBUTION WIDTH 13.2 % (11.7-14.4)
[2022-04-06 11:05] LABS: INR 1.01; PROTHROMBIN TIME 13.5 seconds (11.9-14.5)
[2022-04-06 11:16] LABS: ALBUMIN 3.9 g/dL (3.5-5.0); ALBUMIN/GLOBULIN RATIO 0.8 (0.8-2.0); ANION GAP 16.3 mmol/L (8-16); CALCIUM 10.1 mg/dL (8.4-10.2); CREATININE, SERUM 0.83 mg/dL (0.57-1.11); POTASSIUM 5.3 mmol/L (3.5-5.1)
[2022-04-06] MEDS ORDERED: IOPAMIDOL 370 MG/ML 100 ML INFUS..BTL INJ ONE (11:41)
[2022-04-06] MEDS ORDERED: SODIUM CHLORIDE 0.9% 100 ML ONE (11:41)
[2022-04-06] MEDS ORDERED: ONDANSETRON HCL INJ 2MG/ML 2ML 2 MG/ML VIAL IV PRN (13:00)
[2022-04-06] MEDS ORDERED: CLOPIDOGREL BISULFATE 75 MG TAB PO SCH (13:00)
[2022-04-06] MEDS ORDERED: ASPIRIN 325 MG TAB PO SCH (13:00)
[2022-04-06 15:08] VITALS: BP 123/73
[2022-04-06 17:09] VITALS: BP 123/73
[2022-04-06] MEDS: ENOXAPARIN SOD INJ 40 MG/0.4 ML SYR SC SCH (17:22)
[2022-04-06 20:00] VITALS: BP 127/76
[2022-04-06] MEDS: ATORVASTATIN 40 MG TAB PO SCH (20:31)
[2022-04-07] VITALS (9 sets, daily range): BP systolic 111–129; BP diastolic 64–79
[2022-04-07 06:11] LABS: BASOPHILS % 0.4 % (0.0-1.0); EOSINOPHILS # (AUTO) 0.1 (0.0-0.4); EOSINOPHILS % 1.5 % (0.0-6.0); HEMATOCRIT 43.9 % (34.2-44.1); HEMOGLOBIN 14.2 g/dL (12.0-16.0); LYMPHOCYTES # (AUTO) 1.6 (1.0-3.2); LYMPHOCYTES % 34.8 % (18.0-39.1); MEAN CORPUSCULAR HEMOGLOBIN 30.5 pg (28-32); MEAN CORPUSCULAR HGB CONC 32.3 g/dL (31-35); MEAN CORPUSCULAR VOLUME 94.4 fL (81-99); MONOCYTES # (AUTO) 0.3 (0.2-0.8); MONOCYTES % 6.3 % (4.4-11.3); NEUTROPHILS # (AUTO) 2.6 (2.1-6.9); PLATELET COUNT 175 x10e3/uL (140-360); RED BLOOD COUNT 4.65 x10e6/uL (3.6-5.1)
[2022-04-07 06:32] LABS: ANION GAP 13.8 mmol/L (8-16); CALCIUM 9.3 mg/dL (8.4-10.2); CREATININE, SERUM 0.68 mg/dL (0.57-1.11); POTASSIUM 3.8 mmol/L (3.5-5.1)
[2022-04-07] MEDS: ASPIRIN 81 MG CHEW TAB PO SCH (09:39)
[2022-04-07] MEDS: CLOPIDOGREL BISULFATE 75 MG TAB PO SCH (09:39)
[2022-04-07] MEDS: PANTOPRAZOLE SOD 40 MG TABEC PO SCH (09:39)
[2022-04-07] MEDS: TRAMADOL HCL 50 MG TAB PO PRN (12:27)
[2022-04-07] MEDS: ENOXAPARIN SOD INJ 40 MG/0.4 ML SYR SC SCH (17:21)
[2022-04-07] MEDS: ATORVASTATIN 40 MG TAB PO SCH (21:13)
[2022-04-07] MEDS ORDERED: ACETAMINOPHEN 325 MG TAB PO PRN (21:30)
[2022-04-07] MEDS ORDERED: HYDRALAZINE HCL 20 MG/ML VIAL IV PRN (21:30)
[2022-04-07] MEDS ORDERED: POLYETHYLENE GLYCOL 3350 17 GM PACK PO PRN (21:30)
[2022-04-08 01:26] VITALS: BP 109/64
[2022-04-08] MEDS: TRAMADOL HCL 50 MG TAB PO PRN (04:13)
[2022-04-08 06:17] LABS: ANION GAP 12.7 mmol/L (8-16); CALCIUM 9.3 mg/dL (8.4-10.2); CREATININE, SERUM 0.68 mg/dL (0.57-1.11); MAGNESIUM 2.1 MG/DL (1.3-2.1); PHOSPHORUS 3.6 MG/DL (2.3-4.7); POTASSIUM 3.7 mmol/L (3.5-5.1)
[2022-04-08 07:06] VITALS: BP 111/67
[2022-04-08 07:30] VITALS: BP 107/62
[2022-04-08 08:04] LABS: BASOPHILS % 0.8 % (0.0-1.0); EOSINOPHILS # (AUTO) 0.1 (0.0-0.4); EOSINOPHILS % 1.8 % (0.0-6.0); HEMOGLOBIN 13.8 g/dL (12.0-16.0); LYMPHOCYTES # (AUTO) 1.7 (1.0-3.2); LYMPHOCYTES % 43.7 % (18.0-39.1); MEAN CORPUSCULAR HEMOGLOBIN 30.4 pg (28-32); MEAN CORPUSCULAR HGB CONC 33.7 g/dL (31-35); MEAN CORPUSCULAR VOLUME 90.3 fL (81-99); MONOCYTES # (AUTO) 0.3 (0.2-0.8); MONOCYTES % 8.7 % (4.4-11.3); NEUTROPHILS # (AUTO) 1.7 (2.1-6.9); NEUTROPHILS % 44.7 % (38.7-80.0); PLATELET COUNT 169 x10e3/uL (140-360); RED BLOOD COUNT 4.54 x10e6/uL (3.6-5.1); RED CELL DISTRIBUTION WIDTH 13.6 % (11.7-14.4)
[2022-04-08 08:21] VITALS: BP 107/62
[2022-04-08] MEDS: DOCUSATE SODIUM 100 MG CAP PO SCH ×2 (08:44→18:08)
[2022-04-08] MEDS: PANTOPRAZOLE SOD 40 MG TABEC PO SCH (08:44)
[2022-04-08] MEDS: CLOPIDOGREL BISULFATE 75 MG TAB PO SCH (08:44)
[2022-04-08] MEDS: ASPIRIN 81 MG CHEW TAB PO SCH (08:44)
[2022-04-08 11:37] VITALS: BP 116/62
[2022-04-08 15:50] VITALS: BP 115/70
[2022-04-08] MEDS: ENOXAPARIN SOD INJ 40 MG/0.4 ML SYR SC SCH (18:09)
== END 2022-04-08 18:23 | disposition home or self-care (01) ==
LOC: ER 10:17 → ERHOLD 13:03 → MED/SURG2 14:52
PROVIDERS: ADMIT Internal Medicine; ATTEND Internal Medicine
DX: G45.9 Transient cerebral ischemic attack, unspecified (principal); I69.351 Hemiplegia and hemiparesis following cerebral infarction affecting right dominant side; I25.10 Atherosclerotic heart disease of native coronary artery without angina pectoris; F32.A Depression, unspecified; Z86.718 Personal history of other venous thrombosis and embolism; Z79.01 Long term (current) use of anticoagulants; Z85.3 Personal history of malignant neoplasm of breast; Z86.79 Personal history of other diseases of the circulatory system; Z74.09 Other reduced mobility; G89.4 Chronic pain syndrome; Z20.822 Contact with and (suspected) exposure to COVID-19
CPT/HCPCS: 36415 ×3; 70450; 70496; 70498; 70551; 80048 ×2; 80053; 82948; 83735; 84100; 84484; 85025 ×3; 85610; 92507; 92523; 93005; 94799 ×3; 97110; 97116 ×2; 97162; 97530 ×2; 99284; G0378 ×3; J1650 ×3; J7050; Q9967; S0164 ×2; U0002

== ENCOUNTER 2022-05-04 08:45 | Observation (INO) | payer MEDICARE ==
[~2022-05-04] VITALS: Ht 157.5 cm; Wt 62.1 kg
[2022-05-04] MEDS ORDERED: Morphine 4mg INJECTION 4 MG/ML INJ IV STA (09:14)
[2022-05-04] MEDS ORDERED: ONDANSETRON HCL INJ 2MG/ML 2ML 2 MG/ML VIAL IV STA (09:14)
[2022-05-04 09:23] LABS: BASOPHILS % 0.3 % (0.0-1.0); EOSINOPHILS # (AUTO) 0.1 (0.0-0.4); EOSINOPHILS % 1.9 % (0.0-6.0); HEMATOCRIT 42.3 % (34.2-44.1); HEMOGLOBIN 14.2 g/dL (12.0-16.0); LYMPHOCYTES # (AUTO) 1.4 (1.0-3.2); MEAN CORPUSCULAR HGB CONC 33.6 g/dL (31-35); MEAN CORPUSCULAR VOLUME 89.4 fL (81-99); MONOCYTES # (AUTO) 0.2 (0.2-0.8); MONOCYTES % 5.7 % (4.4-11.3); NEUTROPHILS % 54.8 % (38.7-80.0); PLATELET COUNT 196 x10e3/uL (140-360); RED BLOOD COUNT 4.73 x10e6/uL (3.6-5.1); RED CELL DISTRIBUTION WIDTH 13.3 % (11.7-14.4)
[2022-05-04 09:41] LABS: INR 1.11; PARTIAL THROMBOPLASTIN TIME 32.3 seconds (23.8-35.5); PROTHROMBIN TIME 14.5 seconds (11.9-14.5)
[2022-05-04 09:51] LABS: ALANINE AMINOTRANSFERASE 15 IU/L (0-55); ALBUMIN 3.4 g/dL (3.5-5.0); ALBUMIN/GLOBULIN RATIO 0.8 (0.8-2.0); ALKALINE PHOSPHATASE 89 IU/L (40-150); ANION GAP 14.9 mmol/L (8-16); BLOOD UREA NITROGEN 9 mg/dL (7-26); BUN/CREATININE RATIO 13 (6-25); CALCIUM 9.8 mg/dL (8.4-10.2); CARBON DIOXIDE 20 mmol/L (22-29); CHLORIDE 109 mmol/L (98-107); CREATINE KINASE 53 IU/L (29-168); CREATININE, SERUM 0.71 mg/dL (0.57-1.11); GLUCOSE 103 mg/dL (74-118); POTASSIUM 3.9 mmol/L (3.5-5.1); SODIUM 140 mmol/L (136-145)
[2022-05-04] MEDS ORDERED: SODIUM CHLORIDE 0.9% 1000ML 1,000 ML IV STA (10:38)
[2022-05-04] MEDS ORDERED: IOPAMIDOL 370 MG/ML 100 ML INFUS..BTL INJ ONE (12:16)
[2022-05-04] MEDS: Morphine 4mg INJECTION 4 MG/ML INJ IV PRN ×2 (14:14→20:18)
[2022-05-04] MEDS: FAMOTIDINE 20 MG/2 ML VIAL IV SCH ×2 (14:14→20:18)
[2022-05-04] MEDS: ONDANSETRON HCL INJ 2MG/ML 2ML 2 MG/ML VIAL IV PRN ×2 (14:14→20:18)
[2022-05-04 18:54] VITALS: BP 121/68
[2022-05-04 19:13] LABS: CREATINE KINASE MB 1.4 ng/mL (0-5.0)
[2022-05-04 20:00] VITALS: BP 119/69
[2022-05-04] MEDS ORDERED: SERTRALINE HCL 50 MG TAB PO SCH (21:30)
[2022-05-04 23:19] VITALS: BP 119/69
[2022-05-05 00:49] VITALS: BP 112/56
[2022-05-05 05:16] LABS: BASOPHILS % 0.3 % (0.0-1.0); EOSINOPHILS # (AUTO) 0.1 (0.0-0.4); HEMATOCRIT 39.4 % (34.2-44.1); HEMOGLOBIN 12.9 g/dL (12.0-16.0); LYMPHOCYTES # (AUTO) 1.7 (1.0-3.2); MEAN CORPUSCULAR HEMOGLOBIN 29.9 pg (28-32); MEAN CORPUSCULAR HGB CONC 32.7 g/dL (31-35); MEAN CORPUSCULAR VOLUME 91.4 fL (81-99); MONOCYTES # (AUTO) 0.3 (0.2-0.8); MONOCYTES % 7.2 % (4.4-11.3); NEUTROPHILS # (AUTO) 1.4 (2.1-6.9); NEUTROPHILS % 40.5 % (38.7-80.0); PLATELET COUNT 181 x10e3/uL (140-360); RED BLOOD COUNT 4.31 x10e6/uL (3.6-5.1); RED CELL DISTRIBUTION WIDTH 13.5 % (11.7-14.4)
[2022-05-05] MEDS: ONDANSETRON HCL INJ 2MG/ML 2ML 2 MG/ML VIAL IV PRN (05:27)
[2022-05-05] MEDS: Morphine 4mg INJECTION 4 MG/ML INJ IV PRN (05:28)
[2022-05-05 05:35] VITALS: BP 120/77
[2022-05-05 05:43] LABS: ALBUMIN 2.9 g/dL (3.5-5.0); ALBUMIN/GLOBULIN RATIO 0.8 (0.8-2.0); ANION GAP 12.1 mmol/L (8-16); CALCIUM 8.9 mg/dL (8.4-10.2); CHOL/HDL RATIO 4.8 (3.0-3.6); CREATININE, SERUM 0.77 mg/dL (0.57-1.11); POTASSIUM 4.1 mmol/L (3.5-5.1)
[2022-05-05 05:52] LABS: CREATINE KINASE MB 1.3 ng/mL (0-5.0)
[2022-05-05 08:09] VITALS: BP 105/58
[2022-05-05] MEDS ORDERED: PANTOPRAZOLE SOD 40 MG TABEC PO SCH (09:00)
[2022-05-05] MEDS ORDERED: MECLIZINE HCL 12.5 MG TAB PO SCH (09:00)
[2022-05-05] MEDS ORDERED: ASPIRIN 81 MG CHEW TAB PO SCH (09:00)
[2022-05-05] MEDS ORDERED: ASPIRIN 81 MG ENTERIC COATED PO SCH (09:00)
[2022-05-05] MEDS ORDERED: METOPROLOL SUCCINATE 25 MG TAB XL PO SCH (09:45)
[2022-05-05] MEDS: FAMOTIDINE 20 MG/2 ML VIAL IV SCH (09:54)
[2022-05-05] MEDS ORDERED: TOPROL XL25 MG PO (11:00)
[2022-05-05 11:42] VITALS: BP 108/73
[2022-05-05] MEDS ORDERED: ONDANSETRON HCL 4 MG ORAL DISINTEGRATING TAB PO PRN (12:15)
[2022-05-05] MEDS ORDERED: ATORVASTATIN 40 MG TAB PO SCH (21:00)
[2022-05-05] MEDS ORDERED: FAMOTIDINE 20 MG TAB PO SCH (21:00)
== END 2022-05-05 14:28 | disposition home or self-care (01) ==
LOC: ER 08:52 → ERHOLD 12:15 → MED/SURG 18:31
PROVIDERS: ADMIT Internal Medicine; ATTEND Internal Medicine
DX: R07.89 Other chest pain (principal); I10 Essential (primary) hypertension; E78.5 Hyperlipidemia, unspecified; Z86.73 Personal history of transient ischemic attack (TIA), and cerebral infarction without residual deficits; R42 Dizziness and giddiness; F41.9 Anxiety disorder, unspecified; Q24.9 Congenital malformation of heart, unspecified; G43.909 Migraine, unspecified, not intractable, without status migrainosus; K57.90 Diverticulosis of intestine, part unspecified, without perforation or abscess without bleeding; Z20.822 Contact with and (suspected) exposure to COVID-19
CPT/HCPCS: 0223U; 36415 ×2; 71045; 71260; 80053 ×2; 80061; 82550 ×2; 82553 ×2; 83735; 83880; 84484 ×2; 85025 ×2; 85610; 85730; 93005; 99284; G0378 ×2; J2270 ×2; J2405 ×2; J7030; J8597; Q9967; S0164